=== PATIENT | female | born 1965 | race Caucasian/White ===

== ENCOUNTER 2019-10-18 17:06 | Observation (INO) | payer OTHER, SELFPAY ==
--- NOTE | ~2019-10-18 | CT_ITS ---
EXAMINATION: CTA brain carotid DATE: 10/18/2019 20:50 INDICATION: Left-sided hand and facial numbness. TECHNIQUE: Computed tomographic angiography (CTA) of the head was performed with 100 mL Omnipaque-350 intravenous contrast. CTA of the neck was performed with intravenous contrast. Automated exposure co ntrol and iterative reconstruction technique were employed. The dose-length product was 1064.42 mGy-c m. Maximum intensity projection and volume rendered 3D-reconstructions were created by the дмитрий dasilva on a separate workstation. COMPARISON: Head CT 10/18/2019 FINDINGS: HEAD CTA: There are scattered areas of low attenuation in the cerebral white matter. There is no intr acranial hemorrhage, acute infarction, or abnormal intracranial mass lesion. The ventricles are toi l in size. The paranasal sinuses are clear. The orbits are normal. The mastoid air cells are normal. The vertebral arteries are codominant. There is no significant stenosis of basilar artery or the post erior cerebral arteries. There is no significant stenosis of the intracranial internal carotid arteri es or anterior or middle cerebral arteries. Anterior communicating artery and the posterior communica ting arteries are normal. There is no aneurysm. NECK CTA: The visualized portions of the lung apices demonstrate severe emphysema. There is mild scar ring at the lung apices. There are no pathologically enlarged lymph nodes. There is no significant st enosis of the vertebral arteries. There is endophytic plaque in proximal right internal carotid arter y. There is 28% stenosis of the proximal right internal carotid artery relative to normal distal sherman ry lumen diameter (NASCET criteria). There is 0% stenosis of the proximal left internal carotid arter y relative to normal distal artery lumen diameter. There is moderate cervical spondylosis. IMPRESSION: 1. Mild nonspecific cerebral white matter disease, which likely represents chronic small vessel ische leela disease. 2. No aneurysm or significant intracranial arterial stenosis. 3. 28% stenosis of the proximal right internal carotid artery relative to normal distal artery lumen diameter (NASCET criteria). 4. 0% stenosis of the proximal left internal carotid artery relative to normal distal artery lumen di ameter. 5. Severe emphysema. Reviewed, dictated and finalized at location A. IMPRESSION: 1. Mild nonspecific cerebral white matter disease, which likely represents youth officer doris small vessel ischemic disease. 2. No aneurysm or significant intracranial arterial stenosis. 3. 28% stenosis of the proximal right internal carotid artery relative to toi l distal artery lumen diameter (NASCET criteria). 4. 0% stenosis of the proximal left internal carotid artery relative to normal distal artery lumen diameter. 5. Severe emphysema.
--- NOTE | ~2019-10-18 | XR_ITS ---
XR chest 1V portable DATE: 10/18/2019 17:54 INDICATION: Left face numbness, left arm paresis TECHNIQUE: Portable AP chest on 10/18/2019 at 1755 hours COMPARISON: 11/10/2018 LDCT Lung cancer screening FINDINGS: There is bilateral hyperinflation consistent with COPD. No pulmonary infiltrate or consoli dation, pulmonary vascular congestion or pleural effusion or pneumothorax. No hilar or mediastinal e nlargement. Normal heart size. IMPRESSION: Bilateral hyperinflation, consistent with COPD Reviewed, dictated and finalized at location A.
--- NOTE | ~2019-10-18 | CT_ITS ---
EXAMINATION: CT brain wo con DATE: 10/18/2019 18:00 INDICATION: Left face and hand numbness TECHNIQUE: Computed tomography (CT) of the head was performed without intravenous contrast. The mA wa s adjusted according to patient size. Iterative reconstruction technique was employed. Exam dose: 60 5.33 mGy-cm total exam DLP. COMPARISON: None FINDINGS: No intracranial mass lesion or hemorrhage or cerebrovascular accident is detected. Bilateral carotid siphon calcifications. There is nonspecific mild diminished attenuation of the cer ebral white matter, likely due to chronic small vessel ischemic changes. Normal ventricular size. No subdural or epidural hematoma. No fracture or bone destruction of the cranial vault. The mastoid air cells and included paranasal si nuses are normally developed and aerated. IMPRESSION: Cerebral atherosclerosis and chronic small vessel ischemic changes of the cerebral white matter No acute intracranial finding is noted. CT is not sensitive for detection of hyperacute ischemic nonh emorrhagic infarct. Reviewed, dictated and finalized at Location A. Reviewed, dictated and finalized at location A. IMPRESSION: Cerebral atherosclerosis and chronic small vessel ischemic changes of the cerebral white matter No acute intracranial finding is noted. CT is not sensitive for detection of hy peracute ischemic nonhemorrhagic infarct.
[2019-10-18 17:18] VITALS: BP 108/74; PULSE 80; RESP 17; TEMP 36.8; O2SAT 100
--- NOTE | 2019-10-18 17:21 | ECG_ITS ---
Measurements Intervals [place] Rate: 75 P: -5 LA: 120 QRS: 81 QRSD: 73 T: 79 QT: 377 QTc: 423 Interpretive Statements SINUS RHYTHM BASELINE ARTIFACT- V4-V5 NORMAL ECG Electronically Signed On 10-18-2019 19:36:46 CDT by Stephane Ng D.O.
--- NOTE | 2019-10-18 17:30 | ED.NEUROSD ---
HPI - Neuro Symptoms/Deficit General Chief Complaint: Neuro Symptoms/Deficit Stated Complaint: numbness in left hand and face x 1 hour Time Seen by Provider: 10/18/19 17:21 History of Present Illness HPI Narrative: Numbness to the left side of the face and left hand since earlier today. noted that face seemed to be asymmetrical at that time, this has resolved. She also feels like she would not be able to hold anything in her left hand. No definitive weakness or incoordination. She also feels a little fuzzy. She had a headache earlier in the day. She believes that this was due to drinking alcohol last night. Related Data Home Medications Medication Instructions Recorded Confirmed levothyroxine 75 mcg capsule 75 mcg PO DAILY 05/02/19 omeprazole 40 mg capsule,delayed 40 mg PO DAILY 05/02/19 release roflumilast 500 mcg tablet 500 mcg PO DAILY 05/02/19 fluticasone propionate 50 1 spray NASAL DAILY 06/22/19 mcg/actuation nasal spray,suspension lactobacillus combination no.8 3,000 mmu cells PO DAILY 10/18/19 [Adult Probiotic] lorazepam [Ativan] 1 mg PO DAILY PRN 10/18/19 prednisone 5 mg PO DAILY 10/18/19 tizanidine mg 10/18/19 zoledronic pcvl-ejwzslmw-wnwyr 5 mg IV ONCE 10/18/19 [Reclast] Allergies Allergy/AdvReac Type Severity Reaction Status Date / Time No Known Allergies Allergy Unknown Verified 10/18/19 17:10 Review of Systems Review of Systems: All systems reviewed & are unremarkable except as noted in HPI and below Constitutional: Constitutional: Denies fever(s) and Denies weakness Cardiovascular: Cardiovascular: Denies chest pain Respiratory: Respiratory: Denies dyspnea Gastrointestinal: Gastrointestinal: Denies abdominal pain and Denies nausea Genitourinary: Genitourinary: Denies hematuria and Denies dysuria Musculoskeletal: Musculoskeletal: Denies back pain Neurologic: Reports dizziness, Reports numbness and Denies weakness [facility] Past Medical History Medical History COPD (chronic obstructive pulmonary disease) GERD (gastroesophageal reflux disease) Hypothyroidism Osteopenia Thyroid disease Vocal cord cancer Surgical History Surgical History Cholecystectomy planned tubal ligation planned S/P radiation therapy Family History Family History Father Family history of malignant neoplasm Mother Family history of emphysema Social History Social History Smoking status: Former smoker Gender identity (if verbalized by the patient): Female Exam Const: General: healthy appearing, no acute distress and alert Nutritional Appearance: well nourished Orientation/consciousness: patient oriented x3 HENMT: Head: normal to inspection Eyes: Pupils: Equal, round and reactive pupils present EOM: EOMs intact bilaterally Chest: Chest palpation & inspection: no tenderness Resp: Effort & Inspection: normal respiratory effort Auscultation: clear to auscultation bilaterally, no rales, no rhonchi and no wheezes Cardio: Jugular venous distension: no JVD Rate: regular rate Rhythm: regular rhythm Heart sounds: no murmurs GI: Inspection: non-distended GI Palp: Yes Soft to palpation and No Tenderness to palpation present (GI) Skin: General skin exam: normal color Neuro: General: patient oriented x3, moves all extremities, no focal motor deficits and CN's II-XI intact bilaterally Cranial nerves: Yes Nystagmus not present Speech: normal speech Motor exam (neuro): 5/5 motor strength present throughout Extrem: General: normal to inspection and no edema Psych: Appearance: well kempt Affect: normal affect Course Vital Signs Vital signs: Vital Signs Temperature 36.8 C 10/18/19 17:18 Pulse Rate 80 10/18/19 17:18 Resp
[2019-10-18 17:31] LABS: Glucose Point of Care 99 (65-105)
[2019-10-18 18:00] LABS: Basophils Absolute Auto 0.1 K/mm3 (0.0-0.1); Basophils Percent Auto 0.6 % (0.2-1.2); Eosinophils Percent Auto 0.1 % (0-4.4); Hematocrit 39.6 % (37.0-47.0); Hemoglobin 13.3 g/dL (12.0-15.0); Immature Granulocyte Absolute 0.06 K/mm3 (0.00-0.031); Immature Granulocyte Percent A 0.7 % (0-0.5); Lymphocytes Absolute Auto 1.22 K/mm3 (0.9-3.2); Lymphocytes Percent Auto 14.4 % (18.3-44.2); Mean Corpuscular HGB Conc 33.6 g/dl (32-36); Mean Corpuscular Hemoglobin 31.9 pg (26-34); Mean Platelet Volume 10.2 fl (7.4-10.4); Monocytes Absolute Auto 0.6 K/mm3 (0.1-0.6); Monocytes Percent Auto 6.9 % (2.6-8.5); Neutrophils Absolute Auto 6.6 K/mm3 (1.3-6.7); Neutrophils Percent Auto 77.3 % (45.5-73.1); Platelet Count Result 372 k/mm3 (150-375); Red Blood Count 4.17 M/mm3 (4.2-5.4); Red Cell Distribution Width 12.8 % (11.5-14.5); White Blood Count 8.5 K/mm3 (4.5-10.0)
[2019-10-18] MEDS: SODIUM CHLORIDE 0.9% IV 1,000 ML 999 ML IV CONT (18:09)
[2019-10-18 18:11] LABS: Prothrombin Time 12.8 Seconds (11.1-14.7)
[2019-10-18 18:12] LABS: Partial Thromboplastin Time 22.6 SECONDS (22.3-36.8)
[2019-10-18 18:20] LABS: Anion Gap 9 mmol/L (8-16); Blood Urea Nitrogen 15 mg/dL (7-17); Calcium 10.1 mg/dL (8.4-10.2); Carbon Dioxide 28 mmol/L (22-30); Chloride 102 mmol/L (98-107); Estimated CRCL calculation 74 ml/min; Estimated Glomerular Filt Rate > 60; Glucose 99 mg/dL (65-105); Sodium 139 mmol/L (137-145)
[2019-10-18 18:32] LABS: Troponin I < 0.012 ng/mL (0.000-0.034)
[2019-10-18 19:06] VITALS: BP 109/80; PULSE 75; RESP 16; O2SAT 97
--- NOTE | 2019-10-18 19:22 | PC.NURSE ---
report taken from jt flores at this time.
[2019-10-18] MEDS: ASPIRIN 81 MG CHEWABLE TABLET 324 MG PO (19:45)
[2019-10-18 20:01] VITALS: BP 118/78; PULSE 71; RESP 18; O2SAT 98
[2019-10-18 20:49] VITALS: BP 125/70; PULSE 70; RESP 19; TEMP 36.7; O2SAT 98
--- NOTE | 2019-10-18 20:50 | PM.IMHP ---
H&P: HPI History of Present Illness Date/Time: 10/18/19 20:50 Chief complaint: Left face and hand numbness, suspect TIA Narrative: This is a pleasant 53 year old female with known history of previous vocal cord cancer s/p radiation therapy, COPD, and hypothyroidism who presented to the hospital with a complaint of left hand and left facial numbness as well as left facial droop that started around 5 pm this evening. She has no previous history of stroke. She denies any significant motor weakness although her had to help her into the car. Her has noticed a marked improvement in her left facial droop since being in the hospital. She continues to have some mile left facial droop and left face/hand numbness/tingling. She denies any blurry vision, double vision, slurred speech, difficulty swallowing, head trauma, seizure like activity, or passing out recently. While being in the ER tonight her only other symptoms is a frontal headache. She denies any recent fevers, cough, chills, chest pain, shortness of breath, wheezing, abdominal pain, nasuea, vomiting, diarrhea, dysuria, hematuria, rectal bleeding, rashes or lower extremity edema. Initial CT brain was unremarkable for acute pathology. We have been asked to admiit the patient to the hospital for further care. She quit smoking 6 years ago. Review of Systems Review of Systems: All systems reviewed & are unremarkable except as noted in HPI and below PMFSH Past Medical History Medical History (Updated 10/18/19 @ 21:00 by Omar Ye MD) COPD (chronic obstructive pulmonary disease) GERD (gastroesophageal reflux disease) Hypothyroidism Osteopenia Thyroid disease Vocal cord cancer Surgical History Surgical History (Updated 10/18/19 @ 20:54 by Omar Ye MD) Cholecystectomy planned tubal ligation planned S/P radiation therapy Family History Family History (Updated 03/01/18 @ 13:02 by DOCTOR UNKNOWN) Father Family history of malignant neoplasm Mother Family history of emphysema Social History Social History (Updated 05/02/19 @ 14:59 by Maite Gonzales [facility]) Smoking status: Former smoker Gender identity (if verbalized by the patient): Female Meds Home Medications and Allergies Home Medications Medication Instructions Recorded Confirmed Type levothyroxine 75 mcg capsule 75 mcg PO DAILY 05/02/19 History omeprazole 40 mg capsule,delayed 40 mg PO DAILY 05/02/19 History release roflumilast 500 mcg tablet 500 mcg PO DAILY 05/02/19 History fluticasone fur. 100 mcg-umeclid 1 inhalation INHALATION Q24H 30 06/22/19 06/22/19 Rx 62.5 mcg-vilant 25 mcg Days #60 each inhalat.powder fluticasone propionate 50 1 spray NASAL DAILY 06/22/19 History mcg/actuation nasal spray,suspension albuterol sulfate 90 mcg/actuation 1 puff INHALATION Q4H PRN 30 Days 08/25/19 Rx aerosol inhaler #8.5 gm levalbuterol HCl 0.63 mg/3 mL 0.63 mg INHALATION TID PRN #90 ml 08/25/19 Rx solution for nebulization lactobacillus combination no.8 3,000 mmu cells PO DAILY 10/18/19 History [Adult Probiotic] lorazepam [Ativan] 1 mg PO DAILY PRN 10/18/19 History prednisone 5 mg PO DAILY 10/18/19 History tizanidine mg 10/18/19 History zoledronic zjwt-mvhwyoby-gxeuy 5 mg IV ONCE 10/18/19 History [Reclast] Allergies Allergy/AdvReac Type Severity Reaction Status Date / Time No Known Allergies Allergy Unknown Verified 10/18/19 17:10 Vital Signs Vital Signs - 24 hr 10/18/19 17:18 10/18/19 19:06 10/18/19 20:01 Temperature 36.8 C Pulse Rate 80 75 71 Respiratory Rate 17 16 18 Blood Pressure 108/74 109/80 118/78 Pulse Oximetry 100 97 98 10/18/19 20:49 Temperature 36.7 C Pulse Rate 70 Respiratory Rate 19 Blood Pressure 125/70 Pulse Oximetry 98 Exam Const: General: cooperative, healthy appearing, no acute distress, alert and awake Nutritional Appearance: well nourished Orientation/con
--- NOTE | 2019-10-18 21:10 | PC.NURSE ---
This patient, Nisa Yan, was admitted to 2 Medical Room 250-. Patient/family oriented to hospital policies and general routines including ID bracelet, bed and alarms, visiting hours, pain management, procedures, bathroom and other care routines, personal items, smoking policy, room service/diet, and visiting hours. Valuables list has been completed. Information on how to activate the Rapid Response Team has been discussed. Patient/Family are encouraged to report perceived risks to care and to ask questions if they do not understand what they are told or what they should do.
[2019-10-18 22:00] VITALS: BP 124/80; PULSE 67; PULSE 70; RESP 20; TEMP 36.6; O2SAT 99
[2019-10-18] MEDS: LACTATED RINGERS 1,000 ML 75 ML IV CONT (22:00)
[2019-10-18] MEDS: ACETAMINOPHEN 325 MG TABLET 650 MG PO (22:00)
[2019-10-18 23:02] VITALS: BMI 20.1
[2019-10-19] VITALS: PULSE 81
--- NOTE | 2019-10-19 03:14 | PM.TDS ---
Transfer Discharge Sum: Prov Provider Date of admission: 10/18/19 19:37 Primary care physician: Mack Acuna MD Admitting clinician: Omar Ye MD Consults: 10/18/19 Consult to Physician Routine Comment: Consulting Provider: Francisco Muñoz Reason for consultation: Possible stroke Has provider been notified: Yes DS: Admitting Diagnosis Admitting Diagnosis Admitting Diagnosis: Stroke like symptoms Facial paresthesia Paresthesia of left arm Hypothyroidism COPD GERD DS: Discharge Diagnosis Discharge Diagnosis (1) Stenosis of right internal carotid artery: Code(s): I65.21 - Occlusion and stenosis of right carotid artery Status: Acute (2) Facial paresthesia: Code(s): R20.2 - Paresthesia of skin Status: Acute (3) Paresthesia of left arm: Code(s): R20.2 - Paresthesia of skin Status: Acute (4) Stroke-like symptoms: Code(s): R29.90 - Unspecified symptoms and signs involving the nervous system Status: Acute (5) Hypothyroidism: Qualifiers: Hypothyroidism type: unspecified Qualified Code(s): E03.9 - Hypothyroidism, unspecified Code(s): E03.9 - Hypothyroidism, unspecified Status: Chronic (6) GERD (gastroesophageal reflux disease): Qualifiers: Esophagitis presence: esophagitis presence not specified Qualified Code(s): K21.9 - Gastro-esophageal reflux disease without esophagitis Code(s): K21.9 - Gastro-esophageal reflux disease without esophagitis Status: Chronic (7) COPD (chronic obstructive pulmonary disease): Qualifiers: COPD type: unspecified COPD Qualified Code(s): J44.9 - Chronic obstructive pulmonary disease, unspecified Code(s): J44.9 - Chronic obstructive pulmonary disease, unspecified Status: Chronic Transfer Discharge Sum: Med Medications Active and Home Medications: Home Medications levothyroxine 75 mcg capsule 75 mcg PO DAILY 05/02/19 [History Confirmed 10/18/19] omeprazole 40 mg capsule,delayed release 40 mg PO HS 05/02/19 [History Confirmed 10/18/19] roflumilast 500 mcg tablet 500 mcg PO DAILY 05/02/19 [History Confirmed 10/18/19] fluticasone fur. 100 mcg-umeclid 62.5 mcg-vilant 25 mcg inhalat.powder 1 inhalation INHALATION Q24H 30 Days #60 each 06/22/19 [Rx Confirmed 10/18/19] fluticasone propionate 50 mcg/actuation nasal spray,suspension 1 spray NASAL DAILY 06/22/19 [History Confirmed 10/18/19] albuterol sulfate 90 mcg/actuation aerosol inhaler 1 puff INHALATION Q4H PRN 30 Days #8.5 gm 08/25/19 [Rx Confirmed 10/18/19] levalbuterol HCl 0.63 mg/3 mL solution for nebulization 0.63 mg INHALATION TID PRN #90 ml 08/25/19 [Rx Confirmed 10/18/19] lactobacillus combination no.8 [Adult Probiotic] 3,000 mmu cells PO DAILY 10/18/19 [History Confirmed 10/18/19] lorazepam [Ativan] 1 mg PO DAILY PRN 10/18/19 [History Confirmed 10/18/19] prednisone 5 mg PO DAILY 10/18/19 [History Confirmed 10/18/19] tizanidine 4 mg PO PRN PRN 10/18/19 [History Confirmed 10/18/19] zoledronic jase-ytuohzca-edjph [Reclast] 5 mg IV ONCE 10/18/19 [History Confirmed 10/18/19] Active Medications Acetaminophen (Tylenol Tablet) 650 mg PO Q4H PRN PRN Reason: Mild Pain (1-3) or Fever Last Admin: 10/18/19 22:00 Dose: 650 mg Documented by: Albuterol (Proventil Hfa) 1 puff INHALATION Q4H PRN PRN Reason: shortness of breath or wheezing Fluticasone Propionate (Flonase 0.05% Nasal [place]) 1 spray NASAL DAILY CRISTIAN Lactated Ringer's (Lr - Lactated Ringers Iv) 1,000 mls @ 75 mls/hr IV CONT .[id number] CRISTIAN Last Admin: 10/18/19 22:00 Dose: 75 mls/hr Documented by: Lactobacillus Acidophilus (Lactinex Chewable Tablet) 1 tablet PO DAILY CRISTIAN Lorazepam (Ativan Tablet) 1 mg PO DAILY PRN PRN Reason: Anxiety Non-Formulary Medication (Yyjeuwzvseo-Luonexnbh-Lavydbmf [Trelegy Ellipta]) 1 inhalation INHALATION Q24H [facility] Stop: 11/17/19 23:01 Non-Formulary Medication (Roflumilast) 500 mcg PO DAILY CRISTIAN Stop:
== END 2019-10-19 03:15 | disposition short-term general hospital (02) ==
LOC: ANHED 19:50 → ANH2MED 20:26
PROVIDERS: Admitting Provider Family Medicine; Emergency Provider Emergency Medicine; PCP Family Medicine; Visit Provider Family Medicine
DX: I65.21 Occlusion and stenosis of right carotid artery (principal); R20.0 Anesthesia of skin; R29.810 Facial weakness; R29.90 Unspecified symptoms and signs involving the nervous system; J44.9 Chronic obstructive pulmonary disease, unspecified; K21.9 Gastro-esophageal reflux disease without esophagitis; E03.9 Hypothyroidism, unspecified; M85.80 Other specified disorders of bone density and structure, unspecified site; Z85.21 Personal history of malignant neoplasm of larynx; Z92.3 Personal history of irradiation; Z87.891 Personal history of nicotine dependence
CPT/HCPCS: 36415; 70450; 70496; 70498; 71045; 80048; 82948; 84484; 85025; 85610; 85730; 93005; 99285; A9270; G0378; J7030; J7120; Q9967

== ENCOUNTER → 2019-12-25 14:47 | Outpatient (CLI) | payer OTHER, SELFPAY ==
--- NOTE | ~2019-12-25 | CT_ITS ---
EXAMINATION:CT lung screening DATE: 12/25/2019 15:14 INDICATION: Personal history of tobacco dependence. Smoker quit 6 years ago with 45 pack pack year hi story. TECHNIQUE: Computed tomography (CT) of the chest was performed without intravenous contrast. Automate d exposure control and iterative reconstruction technique were employed. The dose-length product (DLP ) was 45.92 mGy-cm. COMPARISON: Chest CT 11/10/2018 FINDINGS: There is mild scarring at the lung apices. There is severe emphysema. There is mild atelect asis and scarring at the lung bases. There is a 7 mm nodule in right upper lobe abutting the pleura w ithout change. No pleural effusion. The heart size is normal. No pericardial effusion. There are esquivel ges of cholecystectomy. There is mild thoracic spondylosis. IMPRESSION: 1. Lung-RADS category 2: Benign appearance or behavior. Continue annual screening with noncontrast lo w-dose chest CT in 12 months. Reviewed, dictated and finalized at location B. AN IMPRESSION: 1. Lung-RADS category 2: Benign appearance or behavior. Continue annual screeni ng with noncontrast low-dose chest CT in 12 months.
== END ==
PROVIDERS: Visit Provider Internal Medicine Critical Care Medicine
DX: Z12.2 Encounter for screening for malignant neoplasm of respiratory organs (principal); Z87.891 Personal history of nicotine dependence
CPT/HCPCS: G0297

== ENCOUNTER → 2020-02-22 17:40 | Outpatient (CLI) | payer OTHER, SELFPAY ==
--- NOTE | ~2020-02-22 | DEXA_ITS ---
Bone Density Report Name: Nisa Yan Age: 54 Sex: Female Ethnicity: White Date of : 1965 Indication: osteopenia; height loss; history of glucocorticoids; asthma or emphysema; postmenopausal Referring Provider: GRADY, ALFRED Study: Bone densitometry was performed. Exam Date: February 22, 2020 Accession number: [id number] Bone Density: Region BMD T-score Z-score Classification AP Spine (L1-L4) 0.885 -1.5 -0.3 Osteopenia Femoral Neck (Left) 0.586 -2.4 -1.3 Osteopenia Total Hip (Left) 0.657 -2.3 -1.6 Osteopenia Femoral Neck (Right) 0.569 -2.5 -1.4 Osteoporosis Total Hip (Right) 0.629 -2.6 -1.8 Osteoporosis Total Hip Mean 0.643 -2.5 -1.7 Osteopenia World Health Organization criteria for BMD impression classify patients as: Normal (T-score at or above -1.0), Osteopenia (T-score between -1.0 and -2.5), or Osteoporosis (T-score at or below -2.5). 10-year Fracture Risk: FRAX not reported because: Some T-score for Spine Total or Hip Total or Femoral Neck at or below -2.5 Previous Exams: Region Exam Age BMD T-score BMD Change BMD Change Date g/cm2 vs Baseline vs Previous AP Spine(L1-L4) 02/22/2020 54 0.885 -1.5 -0.006 -0.005 05/11/2017 51 0.890 -1.4 -0.001 -0.018 01/31/2015 49 0.909 -1.3 0.017 0.033* 01/25/2013 47 0.876 -1.6 -0.016 -0.041* 12/08/2010 45 0.917 -1.2 0.025* 0.025* 10/24/2008 43 0.892 -1.4 Total Hip(Left) 02/22/2020 54 0.657 -2.3 0.004 -0.015 05/11/2017 51 0.672 -2.2 0.018 0.004 01/31/2015 49 0.668 -2.2 0.015 0.008 01/25/2013 47 0.660 -2.3 0.006 -0.009 12/08/2010 45 0.669 -2.2 0.015 0.015 10/24/2008 43 0.654 -2.4 Total Hip(Right) 02/22/2020 54 0.629 -2.6 -0.070* -0.029* 05/11/2017 51 0.657 -2.3 -0.041* -0.037* 01/31/2015 49 0.694 -2.0 -0.004 -0.005 01/25/2013 47 0.699 -2.0 0.000 -0.003 12/08/2010 45 0.702 -2.0 0.003 0.003 10/24/2008 43 0.699 -2.0 *Denotes significance at 95% confidence level, LSC for AP Spine = 0.022 g/cm2, LSC for Total Hip = 0.027 g/cm2 Clinical Information Provided by Patient: Has taken Glucocorticoids Has used the following medications: Vitamin D, Calcium Has the following medical conditions: Asthma or Emphysema
--- NOTE | ~2020-02-22 | MM_ITS ---
EXAMINATION: MM screening [place]nell BI w bolivar HISTORY: Screening mammogram, family history of breast cancer in her sister. TECHNIQUE: Craniocaudal and mediolateral oblique 3-D tomosynthesis images were obtained and synthetic 2-D images were generated. CAD analysis was submitted and interpreted. COMPARISON: 10/31/2018, 05/11/2017, 02/04/2016 BREAST PARENCHYMAL COMPOSITION: The breasts are heterogeneously dense, which may obscure small masses . FINDINGS: There is no evidence of suspicious mass, calcification, or architectural distortion to sugg est malignancy in either breast. There has been no suspicious interval change. IMPRESSION: 1. No mammographic evidence of malignancy. 2. Recommend routine screening mammography in one year. BI-RADS Category 1: Negative Reviewed, dictated and finalized at location A. FROZEN DESSERT
== END ==
PROVIDERS: PCP Family Medicine; Visit Provider Nurse Practitioner
DX: Z12.31 Encounter for screening mammogram for malignant neoplasm of breast (principal); M85.88 Other specified disorders of bone density and structure, other site; M85.852 Other specified disorders of bone density and structure, left thigh; M85.851 Other specified disorders of bone density and structure, right thigh; M81.0 Age-related osteoporosis without current pathological fracture
CPT/HCPCS: 77063; 77067; 77080

== ENCOUNTER 2020-04-18 16:03 | Outpatient (CLI) | payer OTHER, SELFPAY ==
--- NOTE | ~2020-04-18 | US_ITS ---
EXAMINATION: US carotid duplex BI EXAM DATE: 04/18/2020 16:42 INDICATION: Carotid stenosis. TECHNIQUE: Grayscale, color and pulsed Doppler images of the cervical carotid arteries were obtained . The degree of vessel stenosis is placed in one of the following categories: normal, <50% stenosis, 50-69% stenosis, >=70% stenosis but less than near-occlusion, near-occlusion, or occlusion. Note that percent stenosis relative to normal distal artery lumen diameter is indirectly measured from velocit y measurements as described by Reed, et al. Radiology 2003; 229:340-346. Correlation is made to CTA brain carotid exam 10/18/2019. FINDINGS: RIGHT SIDE: Right common carotid artery peak systolic velocity (PSV in cm/s): 96 Right bulb/internal carotid artery peak systolic velocity (PSV in cm/s): 108 Right internal carotid artery end diastolic velocity (EDV in cm/s): 23 Right ICA/CCA peak systolic ratio: 1.1 Right external carotid artery peak systolic velocity (PSV in cm/s): 43 Right vertebral artery antegrade flow: yes There is mild carotid bulb plaque. Velocity and Doppler waveforms in the common and internal carotid arteries is normal. LEFT SIDE: Left common carotid artery peak systolic velocity (PSV in cm/s): 124 Left bulb/internal carotid artery peak systolic velocity (PSV in cm/s): 144 Left internal carotid artery end diastolic velocity (EDV in cm/s): 58 Left ICA/CCA peak systolic ratio: 1.2 Left external carotid artery peak systolic velocity (PSV in cm/s): 105 Left vertebral artery antegrade flow: yes There is no focal plaque identified. IMPRESSION: 1. Less than 50 percent stenosis in the right internal carotid artery. 2. Normal left internal carotid artery. Reviewed, dictated and finalized at location A. IOVASCULAR TECHNOLOGIST
== END 2020-04-18 16:04 | disposition home or self-care (01) ==
PROVIDERS: PCP Family Medicine; Visit Provider Physician Assistant
DX: I63.239 Cerebral infarction due to unspecified occlusion or stenosis of unspecified carotid artery (principal); Z86.73 Personal history of transient ischemic attack (TIA), and cerebral infarction without residual deficits
CPT/HCPCS: 93880

== ENCOUNTER 2020-04-30 16:54 | Emergency (ER) | payer OTHER, SELFPAY ==
--- NOTE | ~2020-04-30 | XR_ITS ---
XR chest 2V DATE: 04/30/2020 17:42 INDICATION: Cough, spitting up blood. TECHNIQUE: PA and lateral views COMPARISON: 12/25/2019 CT lung screening 10/18/2019 portable AP chest FINDINGS: Bilateral hyperinflation and relative flattening the diaphragm, consistent with COPD. No pu lmonary infiltrate or consolidation, pleural effusion or pulmonary vascular congestion or pneumothora x is evident. Normal heart size. No hilar or mediastinal enlargement. Diffuse osteopenia. Status post cholecystectomy. IMPRESSION: COPD Reviewed, dictated and finalized at location A. IMPRESSION: COPD
[2020-04-30 17:27] VITALS: BP 129/82; PULSE 119; RESP 18; TEMP 37.4; O2SAT 94
--- NOTE | 2020-04-30 17:41 | ED.GENADULT ---
HPI - General Adult General Chief complaint: Upper Respiratory Infection Stated complaint: Coughing up Blood,hard time breathing Time Seen by Provider: 04/30/20 17:41 Source: patient Mode of arrival: ambulatory Limitations: no limitations History of Present Illness HPI narrative: 54-year-old female patient presents to the [facility] with complaints of shortness of breath and cough x2 days. Patient does have history of COPD and is a former smoker. Patient states that she started taking a Z-Dorian that she had at home about 2 days ago and today was her third dose. Patient states that she has also been using her albuterol treatments and her rescue inhaler at home and states she just does not feel like she is getting any relief. Patient states she has also been coughing up some streaks of blood at times. Denies any fevers that she is aware of. States that she has had a little bit of a runny nose or stuffy nose. Patient denies any Covid diagnosis within the last 3 months but states she did get her first Covid shot on April 18. Related Data Home Medications Medication Instructions Recorded Confirmed albuterol sulfate [Ventolin HFA] 2 puff INHALATION Q4-6H 04/30/20 04/30/20 aspirin [Adult Aspirin EC Low 81 mg PO DAILY 04/30/20 04/30/20 Strength] atorvastatin [Lipitor] 20 mg PO HS 04/30/20 04/30/20 biotin 10,000 mcg PO BID 04/30/20 04/30/20 calcium carbonate-vitamin D2 1 tablet PO BID 04/30/20 04/30/20 [Calcium 500 with Vitamin D2] coenzyme Q10 200 mg PO BID 04/30/20 04/30/20 fluticasone propionate [Flonase] 1 spray INTRANASAL DAILY 04/30/20 04/30/20 [id number]-[id number]-[id number] 1 inh INHALATION DAILY 04/30/20 04/30/20 [Trelegy Ellipta] lactobacillus combination no.8 3,000 mmu cells PO DAILY 04/30/20 04/30/20 [Adult Probiotic] levalbuterol HCl [Xopenex] 0.63 mg INHALATION TID 04/30/20 04/30/20 levothyroxine [Synthroid] 75 mcg PO DAILY 04/30/20 04/30/20 lorazepam [Ativan] 1 mg PO DAILY 04/30/20 04/30/20 omeprazole [Prilosec] 40 mg PO DAILY 04/30/20 04/30/20 prednisolone 5 mg PO DAILY 04/30/20 04/30/20 risedronate 1 mg PO WEEKLY 04/30/20 04/30/20 roflumilast [Daliresp] 500 mcg PO QAM 04/30/20 04/30/20 tizanidine [Zanaflex] 4 mg PO Q8H 04/30/20 04/30/20 Allergies Allergy/AdvReac Type Severity Reaction Status Date / Time No Known Allergies Allergy Unknown Verified 04/30/20 17:34 Review of Systems Review of Systems: Narrative: CONSTITUTIONAL: Denies fever, chills, or sweats. EYES: Denies visual changes, redness, or discharge. ENT: Denies rhinorrhea, congestion, sore throat, or otalgia. CARDIOVASCULAR: Denies chest pain, palpitations, or edema. RESPIRATORY: Positive cough with dyspnea. GASTROINTESTINAL: Denies abdominal pain, nausea, vomiting, or diarrhea. GENITOURINARY: Denies dysuria or hematuria. SKIN: Denies rash or itching. MUSCULOSKELETAL: Denies back pain, joint pain, or myalgia. NEUROLOGIC: Denies headache, numbness, or weakness. PSYCHIATRIC: Denies anxiety or depression. ON LICENSE OF [facility] Past Medical History Medical History (Updated 04/30/20 @ 18:30 by GLADIS Vogt) COPD (chronic obstructive pulmonary disease) CVA (cerebral vascular accident) Facial paresthesia GERD (gastroesophageal reflux disease) Hypothyroidism Osteopenia Paresthesia of left arm Stenosis of right internal carotid artery Thyroid disease Vocal cord cancer Surgical History Surgical History Cholecystectomy planned History of CEA (carotid endarterectomy) left side tubal ligation planned S/P radiation therapy Family History Family History Father Family history of malignant neoplasm Leukemia Mother Family history of emphysema Cerebrovascular accident Chronic obstructive pulmonary disease Sibling Chronic obstructive pulmonary disease Social History Social History (Reviewed 04/30/20 @ 17:41 by Candi
[2020-04-30] MEDS: IPRATROPIUM BR 0.02% INH SOLN 0.5 MG/2.5 ML VIAL INHALATION (17:55)
[2020-04-30] MEDS: ALBUTEROL SULFATE NEB 2.5 MG/3 ML INH INHALATION (17:55)
[2020-05-01 14:15] LABS: SARS-CoV-2 RNA PCR Negative
== END 2020-04-30 18:24 | disposition short-term general hospital (02) ==
PROVIDERS: Emergency Provider Nurse Practitioner Family; PCP Family Medicine
DX: R06.02 Shortness of breath (principal); R04.2 Hemoptysis; Z20.822 Contact with and (suspected) exposure to COVID-19; J44.9 Chronic obstructive pulmonary disease, unspecified; Z86.73 Personal history of transient ischemic attack (TIA), and cerebral infarction without residual deficits; K21.9 Gastro-esophageal reflux disease without esophagitis; E03.9 Hypothyroidism, unspecified; M85.80 Other specified disorders of bone density and structure, unspecified site; Z85.21 Personal history of malignant neoplasm of larynx; Z92.3 Personal history of irradiation; Z87.891 Personal history of nicotine dependence
CPT/HCPCS: 71046; 87426; 94640; 99213; C9803; G0463; U0003; U0005

== ENCOUNTER 2020-04-30 18:59 | Emergency (ER) | payer OTHER, SELFPAY ==
--- NOTE | ~2020-04-30 | CT_ITS ---
EXAMINATION: CTA chest PE protocol DATE: 04/30/2020 21:27 INDICATION: Cough. Hemoptysis. Shortness of breath. TECHNIQUE: Computed tomography angiography (CTA) of the chest was performed with 100 mL Omnipaque-350 intravenous contrast timed to evaluate the pulmonary arteries. Coronal maximum intensity projection 3D-reconstructions were created by the technologist. Automated exposure control and iterative reconst ruction technique were employed. Exam dose: 144.91 mGy-cm total exam DLP. COMPARISON: 04/30/2020 2 view chest 12/25/2019 CT lung screening examinations FINDINGS: There is diagnostic contrast enhancement of the pulmonary arteries and no evidence of pulmo nary embolism. No thoracic aortic aneurysm or dissection. No hilar or mediastinal mass lesion or lymphadenopathy. Normal heart size. No pericardial or pleural effusion. Emphysematous changes of the lungs. There is mild infiltrate and/atelectasis at the right lung base, primarily on the dependent posterior right lower lobe. Normal morphology of the adrenal glands. No suspicious osteolytic or osteoblastic lesions. IMPRESSION: No evidence of pulmonary embolism COPD Reviewed, dictated and finalized at Location A. Reviewed, dictated and finalized at location A.
[2020-04-30 19:23] VITALS: BP 135/90; PULSE 121; RESP 20; TEMP 37; O2SAT 95
--- NOTE | 2020-04-30 19:26 | ECG_ITS ---
Measurements Intervals [place] Rate: 100 P: 79 GA: 139 QRS: 76 QRSD: 78 T: 68 QT: 327 QTc: 423 Interpretive Statements SINUS TACHYCARDIA POSSIBLE LEFT ATRIAL ENLARGEMENT BORDERLINE ST ABNORMALITY- LATERAL LEADS BASELINE ARTIFACT- I, II, III, AVR, AVL, AVF, V4-V5 BORDERLINE ECG Electronically Signed On 05-01-2020 7:12:50 CDT by Stephane Ng D.O.
[2020-04-30 19:41] LABS: Basophils Absolute Auto 0.1 K/mm3 (0.0-0.1); Basophils Percent Auto 0.4 % (0.2-1.2); Eosinophils Absolute Auto 0.1 K/mm3 (0-0.3); Eosinophils Percent Auto 0.7 % (0-4.4); Hematocrit 37.6 % (37.0-47.0); Hemoglobin 12.3 g/dL (12.0-15.0); Immature Granulocyte Absolute 0.08 K/mm3 (0.00-0.031); Immature Granulocyte Percent A 0.7 % (0-0.5); Lymphocytes Absolute Auto 1.03 K/mm3 (0.9-3.2); Lymphocytes Percent Auto 8.8 % (18.3-44.2); Mean Corpuscular HGB Conc 32.7 g/dl (32-36); Mean Corpuscular Hemoglobin 30.8 pg (26-34); Mean Corpuscular Volume 94.2 fl (80-100); Mean Platelet Volume 9.6 fl (7.4-10.4); Monocytes Absolute Auto 0.9 K/mm3 (0.1-0.6); Neutrophils Absolute Auto 9.5 K/mm3 (1.3-6.7); Neutrophils Percent Auto 81.4 % (45.5-73.1); Platelet Count Result 367 k/mm3 (150-375); Red Blood Count 3.99 M/mm3 (4.2-5.4); Red Cell Distribution Width 13.2 % (11.5-14.5); White Blood Count 11.7 K/mm3 (4.5-10.0)
[2020-04-30 19:53] LABS: Anion Gap 10 mmol/L (8-16); Blood Urea Nitrogen 15 mg/dL (7-17); Calcium 9.9 mg/dL (8.4-10.2); Carbon Dioxide 27 mmol/L (22-30); Chloride 105 mmol/L (98-107); Estimated CRCL calculation 54 ml/min; Estimated Glomerular Filt Rate > 60; Glucose 130 mg/dL (65-105); Potassium 3.7 mmol/L (3.4-5.0); Sodium 142 mmol/L (137-145)
[2020-04-30 20:50] VITALS: BP 130/98; PULSE 101; RESP 21; O2SAT 97
[2020-04-30 21:10] VITALS: BP 93/78; PULSE 96; RESP 21; O2SAT 97
--- NOTE | 2020-04-30 22:36 | ED.SOB ---
HPI - SOB/Dyspnea General Chief Complaint: Shortness of Breath/Dyspnea Stated Complaint: shortness of breath, r/o PE Time Seen by Provider: 04/30/20 20:34 Source: patient and family Mode of arrival: ambulatory Limitations: no limitations History of Present Illness HPI Narrative: 54-year-old with a history of COPD here with complaints of cough shortness of breath. Patient states that she is been having dry cough most of the time had few episodes of coughing of blood. Patient denies any shortness of breath at this time patient states that she called her primary doctor who started on Z-Dorian. However she recommended her to go to the ER for a CT scan for rule out PE. Patient has no previous history of PEs however she states that she had a stroke last year. MD elicited complaint: shortness of breath and cough Pertinent past history: COPD Exacerbating factors: nothing Known history of: COPD Associated symptoms: denies other symptoms Related Data Home oxygen amount: none Home Medications Medication Instructions Recorded Confirmed albuterol sulfate [Ventolin HFA] 2 puff INHALATION Q4-6H 04/30/20 04/30/20 aspirin [Adult Aspirin EC Low 81 mg PO DAILY 04/30/20 04/30/20 Strength] atorvastatin [Lipitor] 20 mg PO HS 04/30/20 04/30/20 biotin 10,000 mcg PO BID 04/30/20 04/30/20 calcium carbonate-vitamin D2 1 tablet PO BID 04/30/20 04/30/20 [Calcium 500 with Vitamin D2] coenzyme Q10 200 mg PO BID 04/30/20 04/30/20 fluticasone propionate [Flonase] 1 spray INTRANASAL DAILY 04/30/20 04/30/20 [id number]-[id number]-hortuayw 1 inh INHALATION DAILY 04/30/20 04/30/20 [Trelegy Ellipta] lactobacillus combination no.8 3,000 mmu cells PO DAILY 04/30/20 04/30/20 [Adult Probiotic] levalbuterol HCl [Xopenex] 0.63 mg INHALATION TID 04/30/20 04/30/20 levothyroxine [Synthroid] 75 mcg PO DAILY 04/30/20 04/30/20 lorazepam [Ativan] 1 mg PO DAILY 04/30/20 04/30/20 omeprazole [Prilosec] 40 mg PO DAILY 04/30/20 04/30/20 prednisolone 5 mg PO DAILY 04/30/20 04/30/20 risedronate 1 mg PO WEEKLY 04/30/20 04/30/20 roflumilast [Daliresp] 500 mcg PO QAM 04/30/20 04/30/20 tizanidine [Zanaflex] 4 mg PO Q8H 04/30/20 04/30/20 Allergies Allergy/AdvReac Type Severity Reaction Status Date / Time No Known Allergies Allergy Unknown Verified 04/30/20 17:34 Review of Systems Review of Systems: All systems reviewed & are unremarkable except as noted in HPI and below Constitutional: Constitutional: Reports no additional constitutional complaints Eyes: Eyes: Reports no additional eye complaints ENT: Reports system reviewed and no additional complaints, except as documented Cardiovascular: Cardiovascular: Reports no additional cardiovascular complaints Respiratory: Respiratory: Reports as per HPI Gastrointestinal: Gastrointestinal: Reports no additional gastrointestinal complaints Musculoskeletal: Musculoskeletal: Reports no additional musculoskeletal complaints [facility] Past Medical History Medical History COPD (chronic obstructive pulmonary disease) CVA (cerebral vascular accident) Facial paresthesia GERD (gastroesophageal reflux disease) Hypothyroidism Osteopenia Paresthesia of left arm Stenosis of right internal carotid artery Thyroid disease Vocal cord cancer Surgical History Surgical History Cholecystectomy planned History of CEA (carotid endarterectomy) left side tubal ligation planned S/P radiation therapy Family History Family History Father Family history of malignant neoplasm Leukemia Mother Family history of emphysema Cerebrovascular accident Chronic obstructive pulmonary disease Sibling Chronic obstructive pulmonary disease Social History Social History Years smoked: 20 Smoking status: Former smoker
[2020-04-30 22:50] VITALS: BP 111/77; PULSE 99; RESP 15; O2SAT 98
== END 2020-04-30 23:00 | disposition home or self-care (01) ==
PROVIDERS: Emergency Provider Family Medicine; PCP Family Medicine
DX: J43.9 Emphysema, unspecified (principal); Z86.73 Personal history of transient ischemic attack (TIA), and cerebral infarction without residual deficits; K21.9 Gastro-esophageal reflux disease without esophagitis; E03.9 Hypothyroidism, unspecified; I65.21 Occlusion and stenosis of right carotid artery; M85.80 Other specified disorders of bone density and structure, unspecified site; Z87.891 Personal history of nicotine dependence; R00.0 Tachycardia, unspecified; R94.31 Abnormal electrocardiogram [ECG] [EKG]
CPT/HCPCS: 36415; 71046; 71275; 80048; 85025; 87426; 93005; 94640; 99284; C9803; Q9967; U0003; U0005

== ENCOUNTER 2020-08-16 12:31 | Outpatient (CLI) | payer OTHER, SELFPAY ==
--- NOTE | 2020-08-16 16:19 | WPDSIXMINUTE ---
Six Minute Walk Procedure Procedure Performed Pulmonary Stress Test (6 min walk) Six Minute Walk This is a 6 minutes walk test. The test was performed and interpreted in accordance with the 2014 ERS/ATS task force guidelines. Findings: The patient's resting room air oxygen saturation measured by pulse oximetry was 95% and her heart rate was 82 bpm. Patient ambulated for 366 meters and oxygen saturation remained 91 to 96%. Heart rate at the end of the study was 92 bpm. The patient did not qualify for supplemental oxygen at rest or with ambulation. There are no prior studies for comparison.
--- NOTE | 2020-08-16 16:21 | WPDPFTINT ---
PFT Procedure Performed PFT Procedure Performed Plethysmography (Lung Vol) Diffusing Cap (DLCO) Flow Vol Loop Spirometry w/o Bronchodil PFT Interpretation This is a pulmonary function test with spirometry, plethysmography and diffusing capacity. The test was performed and results interpreted in accordance with the 2019 and 2005 ATS/ERS Task Force guidelines respectively using the Global Lung Function Initiative-2012 reference equations. Patient demonstrated good effort and cooperation. Reproducibility criteria were met. The quality of the pre bronchodilator spirometry maneuver was Grade A. Findings: Spirometry: There is decreased maximal expiratory airflow at all lung volumes with concave expiratory flow tracing. The contour of the inspiratory flow tracing is normal. The FVC is 2.77 L, 84% predicted. The FEV1 is 0.88 L, 34% predicted. The FEV1: FVC ratio is 32%. Plethysmography: The total lung capacity is 5.80 L, 114% predicted. The functional residual capacity is 3.91 L, 137% predicted. The residual volume is 3.03 L, 158% predicted. Diffusing capacity: The absolute diffusion capacity is 10.1, 46% predicted. The diffusing capacity corrected for alveolar volume is 2.37, 53% predicted. In comparison to previous pulmonary function test on 11/22/2018 the FVC has increased from 2.24 L to 2.77 L. The FEV1 has increased from 0.66 L to 0.88 L. The total lung capacity is unchanged from 5.87 L to 5.80 L. The functional residual capacity has decreased from 4.87 L to 3.91 L. The residual volume has decreased from 3.63 L to 3.03 L. The absolute diffusion capacity has increased from 8.8 to 10.1. The diffusing capacity corrected for alveolar volume is unchanged from 2.67 to 2.37. Impression: There is a very severe obstructive abnormality. The increase in residual volume is consistent with air trapping from an obstructive abnormality. Hyperinflation is present is demonstrated by the increase in functional residual capacity and is consistent with an obstructive abnormality. The absolute diffusing capacity is moderately decreased and remains moderately decreased when corrected for alveolar volume. In comparison to prior pulmonary function test on 11/22/2018 there has been an increase in FVC, FEV1 and absolute DLCO. There has been a greater than anticipated time dependent decrease in functional residual capacity and residual volume with no significant change in the total lung capacity and diffusing capacity corrected for alveolar volume. Clinical correlation is recommended.
== END 2020-08-16 12:32 | disposition home or self-care (01) ==
LOC: ANHPFT 12:33
PROVIDERS: PCP Physician Assistant; Visit Provider Internal Medicine Critical Care Medicine
DX: J44.9 Chronic obstructive pulmonary disease, unspecified (principal)
CPT/HCPCS: 94375; 94618; 94726; 94729

== ENCOUNTER 2020-10-11 09:30 | Outpatient (RCR) | payer OTHER, SELFPAY | END 2020-10-11 11:00 | disposition home or self-care (01) | LOC: ANHCPREHAB 09:30 | PROVIDERS: PCP Physician Assistant; Visit Provider Internal Medicine Critical Care Medicine | DX: J44.9 Chronic obstructive pulmonary disease, unspecified (principal) | CPT/HCPCS: 97150; G0424 ==

== ENCOUNTER → 2020-10-31 08:01 | Outpatient (CLI) | payer OTHER, SELFPAY ==
--- NOTE | ~2020-10-31 | MMUS_ITS ---
EXAMINATION: MM diagnostic pernell LT w bolivar, US breast LT limited HISTORY: Palpable left breast abnormality TECHNIQUE: Additional 3-D tomosynthesis images of the left breast were performed and synthetic 2-D im ages were generated. CAD analysis was submitted and interpreted. High resolution left breast ultrasou nd was performed. COMPARISON: Comparison to multiple prior studies sequentially, with oldest reviewed study dated 01/15. BREAST PARENCHYMAL COMPOSITION: The breasts are heterogenously dense, which may obscure small masses. FINDINGS: MAMMOGRAPHIC FINDINGS: There are no suspicious masses, calcifications or architectural distortion in the left breast to sugg est malignancy. ULTRASOUND: Limited left breast ultrasound: Normal heterogeneous echotexture without focal solid or cystic mass. IMPRESSION: 1. No evidence for malignancy in the left breast. 2. Routine yearly screening mammogram and regular clinical breast examination are recommended. BI-RADS Category 1: Negative Reviewed, dictated and finalized at location A. IMPRESSION: 1. No evidence for malignancy in the left breast. 2. Routine yearly screening mammogram and regular clinical breast examination a re recommended. BI-RADS Category 1: Negative
== END ==
PROVIDERS: PCP Physician Assistant; Visit Provider Nurse Practitioner
DX: N63.24 Unspecified lump in the left breast, lower inner quadrant (principal)
CPT/HCPCS: 76642; 77061; 77065; G0279

== ENCOUNTER 2020-11-25 09:37 | Outpatient (CLI) | payer OTHER, SELFPAY ==
--- NOTE | ~2020-11-25 | US_ITS ---
EXAMINATION: US carotid duplex BI DATE: 11/25/2020 10:15 INDICATION: Right carotid artery stenosis TECHNIQUE: Grayscale, color Doppler, and pulsed Doppler images of the cervical carotid arteries were obtained. The degree of vessel stenosis is placed in one of the following categories: normal, <50%, 5 0-69%, >=70% but less than near-occlusion, near-occlusion, or total occlusion. Note that percent sten osis relative to normal distal artery lumen diameter is indirectly measured from velocity measurement s as described by Reed, et al. Radiology 2003; 229:340-346. Notes: Normal: Peak systolic velocity <125 centimeters/sec and no plaque <50%. Peak systolic velocity <125 ( EDV <40; ICA/CCA PSV ratio <2.0; used these factors only a tandem lesions or low cardiac output or co ntralateral disease) 50-69 %: PSV 125-230 (EDV 40-100; ratio 2-4) >= 70% but less than near occlusion: PSV greater than 230 (EDV > 100; ratio> 4.0) Near Occlusion: PSV that is variable; markedly narrowed lumen Occlusion: Absent flow on color/spectral Doppler and no lumen on hillman scale. COMPARISON: Ultrasound dated 04/18/2020. FINDINGS: RIGHT: The right common carotid artery (CCA) peak systolic velocity (PSV) is 85 cm/s. The right internal car otid artery (ICA) PSV is 71 cm/s. The right ICA end-diastolic velocity (EDV) is 30 cm/s. The right IC A/CCA PSV ratio is 0.8. The external carotid artery (ECA) PSV is 256 cm/s. There is antegrade flow in the right vertebral artery. LEFT: The left CCA PSV is 78 cm/s. The left ICA PSV is 83 cm/s. The left ICA EDV is 23 cm/s. The left ICA/C CA PSV ratio is 1.1. The ECA PSV is 86 cm/s. There is antegrade flow in the left vertebral artery. IMPRESSION: 1. Less than 50% stenosis in the right internal carotid artery by sonographic criteria. 2. Less than 50% stenosis in the left internal carotid artery by sonographic criteria. Reviewed, dictated and finalized at location A. IMPRESSION: 1. Less than 50% stenosis in the right internal carotid artery by sonographic tyrell guzman. 2. Less than 50% stenosis in the left internal carotid artery by sonographic dionne carmona.
== END 2020-11-25 09:38 | disposition home or self-care (01) ==
LOC: ANHIMG 09:41
PROVIDERS: PCP Physician Assistant
DX: I65.23 Occlusion and stenosis of bilateral carotid arteries (principal)
CPT/HCPCS: 93880

== ENCOUNTER → 2020-12-31 10:50 | Outpatient (CLI) | payer OTHER, SELFPAY ==
--- NOTE | ~2020-12-31 | CT_ITS ---
EXAMINATION: CT lung screening EXAM DATE: 12/31/2020 11:04 INDICATION: Z87.891 - Personal history of nicotine dependence . Vocal cord cancer 2019. TECHNIQUE: Spiral low dose CT of the chest without contrast. Axial, coronal and sagittal images were reviewed. The dose-length product (DLP) for this examination was 41.40 mGy-cm. The exposure was ta ilored according to patient size (auto mA exposure control), and iterative reconstruction (ASIR) was used as additional dose reduction technique. Comparison is made to prior examination from 04/30/2020. FINDINGS: There is moderate emphysema. There has been interval development of right upper lobe opaci ty extending from the suprahilar region to the apex, maximal axial dimensions 3.7 x 1.4 cm. Elongated shape suggests that this could be postinfectious, but it is new compared to prior study and size claudio vates L-RADS category to 4B. Tracheobronchial tree is patent. There is no mediastinal, hilar or axillary lymphadenopathy. Ther e are no pleural or pericardial effusions. There is no pneumothorax. Heart normal in size. Ther e is mild coronary arterial calcification, arterial sclerosis. Upper abdomen is unremarkable. There is thoracic spondylosis without osteoblastic or osteolytic lesions identified. IMPRESSION: Lung-RADS category 4B. This could be percutaneously biopsied. Alternatively a PET/CT coul d be obtained and further recommendation based on those results. I left a message for Dr. Natalie Fontanez MD on 12/31/2020 13:18 REMOTE CONTROL MIRROR INSTALLER. I provided patient's name, da te of , 4B results, my direct number for call back to discuss this case. Reviewed, dictated and finalized at location B. TE CONTROL MIRROR INSTALLER IMPRESSION: Lung-RADS category 4B. This could be percutaneously biopsied. Alter natively a PET/CT could be obtained and further recommendation based on those r esults. I left a message for Dr. Natalie Fontanez MD on 12/31/2020 13:18 REMOTE CONTROL MIRROR INSTALLER. I provi ded patient's name, date of , 4B results, my direct number for call back t o discuss this case.
== END ==
PROVIDERS: PCP Physician Assistant; Visit Provider Internal Medicine Critical Care Medicine
DX: Z12.2 Encounter for screening for malignant neoplasm of respiratory organs (principal); Z87.891 Personal history of nicotine dependence; R91.8 Other nonspecific abnormal finding of lung field
CPT/HCPCS: 71271

== ENCOUNTER 2021-01-21 08:02 | Outpatient (CLI) | payer OTHER, SELFPAY ==
--- NOTE | ~2021-01-21 | PE_ITS ---
EXAMINATION: PET skull to mid thigh DATE: 01/21/2021 10:14 INDICATION: Pulmonary nodule TECHNIQUE: Blood glucose level was 84 mg/dL. 7.78 mCi of 18-fluorodeoxyglucose (18-FDG) was administe red i.v. Low dose computed tomography (CT) images were acquired from the base of the brain to the pro ximal thighs for attenuation correction and anatomic localization. Positron emission tomography (PET) images were acquired in the same distribution beginning 65 minutes after injection. Images including fused PET/CT images were reconstructed in axial, coronal, and sagittal planes. Automated exposure co ntrol technique was employed. The dose-length product was 235.45mGy-cm. COMPARISON: Chest CT dated 12/31/2020 FINDINGS: Head/neck: There are regions of decreased uptake with corresponding decreased parenchymal attenuation most promi nent in the right parietal and temporal with smaller regions in the right frontal and left parietal l obes suggesting prior infarct. There is symmetric increased activity in the oral cavity, palatine ton sils, parotid glands, submandibular glands and ocular muscles without CT correlate, likely physiolog ic. There is asymmetric increased uptake along the right vocal cord with maximal SUV of 5.8 without r adiologic correlate which may be related to reported history of cancer of the vocal cords. There is m ild uptake extending craniocaudally along the bilateral sternocleidomastoid muscles without radiologi c which likely physiologic. No pathologically enlarged cervical lymphadenopathy or other suspicious f oci of increased FDG uptake in the visualized head or neck. Chest: Moderate emphysema. No significant interval change in a band of soft tissue density extending oblique ly across the apical segment of the right upper lobe with small amount of FDG activity with maximal S UV of 1.9 which is comparable to the activity in the blood pool of the aorta with a maximal SUV is 2. 1 cm in the liver with maximal SUV of 2.5. Lungs are otherwise clear with no pneumonia, other pulmona ry nodules, pulmonary edema or pleural effusion. Heart size is normal. No pericardial effusion. Thora cic aorta is normal in caliber. No pathologically enlarged or FDG avid thoracic lymphadenopathy. Abdomen/pelvis/proximal thighs: Physiologic renal accumulation and excretion of FDG activity in the kidneys, bladder and along portio ns of ureters. Cholecystectomy clips the gallbladder fossa. Normal degree and heterogenous pattern of increased uptake throughout the liver without radiologic correlate or dominant FDG avid lesion. The pancreas, spleen and bilateral adrenal glands are normal. Mild uptake scattered throughout the bowels without radiologic correlate, also likely physiologic. Uterus and adnexa are unremarkable. No other abnormal foci of increased FDG uptake or pathologically enlarged lymphadenopathy in the abdomen, pelv is or proximal thighs. Musculoskeletal: No suspicious lytic, blastic or FDG avid bone lesions. IMPRESSION: 1. Asymmetric increased uptake along the right vocal cord with maximal SUV of 5.8 without evident rad iologic correlate. This may be related to reported prior history of cancer of the vocal cord with no evident nodule or mass appreciated on the CT images. Consider laryngoscopy for direct visualization. 2. Moderate emphysema with no significant increased uptake along a bandlike opacity at the right uppe r lobe. While reassuring and favoring atelectasis/scarring is in etiology would recommend 3 month fol low-up low-dose noncontrast chest CT. 3. Regions of decreased activity with subtle cortical decreased attenuation most prominent in the rig ht parietal and temporal lobes with smaller regions in the right frontal and left parietal lobes susp icious for infarcts. Consider correlation with head CT or MRI. Reviewed, dictated and fi
[2021-01-21 08:32] LABS: Glucose Point of Care 84 mg/dl (65-105)
== END 2021-01-21 08:03 | disposition home or self-care (01) ==
LOC: ANHIMG 08:05
PROVIDERS: PCP Physician Assistant; Visit Provider Internal Medicine Critical Care Medicine
DX: R91.8 Other nonspecific abnormal finding of lung field (principal); J43.9 Emphysema, unspecified
CPT/HCPCS: 78815; A9552

== ENCOUNTER → 2021-04-15 15:19 | Outpatient (CLI) | payer OTHER, SELFPAY ==
--- NOTE | ~2021-04-15 | MR_ITS ---
EXAMINATION: MR brain/brain stem wo con DATE: 04/15/2021 16:02 INDICATION: Other sequelae of cerebral infarction. Dizziness. TECHNIQUE: Magnetic resonance imaging (MRI) of the brain and brainstem was performed without intraven ous contrast. Sequences included sagittal and axial T1-weighted FSE, axial diffusion-weighted FS EPI, axial T2*-weighted GRE, axial T2-weighted FLAIR Propeller, and axial T2-weighted Propeller. Apparent diffusion coefficient (ADC) maps were created. COMPARISON: Head CT 10/18/2019 FINDINGS: There are patchy old infarcts involving right frontal, parietal, temporal, and occipital lo bes in the expected distribution of right middle cerebral artery. There are scattered areas of nonspe cific increased T2-weighted signal intensity in the cerebral white matter. There is no intracranial h emorrhage, acute infarction, or abnormal intracranial mass lesion. The ventricles are normal in size. The orbits are normal. The mastoid air cells are normal. The paranasal sinuses are clear. IMPRESSION: 1. Patchy old infarcts in the expected distribution of right middle cerebral artery. 2. Mild nonspecific cerebral white matter disease, which likely represents chronic small vessel ische leela disease. Reviewed, dictated and finalized at location A. UCER ASSISTANT IMPRESSION: 1. Patchy old infarcts in the expected distribution of right middle cerebral ar areli. 2. Mild nonspecific cerebral white matter disease, which likely represents java spring developer doris small vessel ischemic disease.
== END ==
PROVIDERS: PCP Physician Assistant
DX: I69.398 Other sequelae of cerebral infarction (principal); R20.9 Unspecified disturbances of skin sensation; R90.82 White matter disease, unspecified
CPT/HCPCS: 70551

== ENCOUNTER → 2021-04-18 11:21 | Outpatient (CLI) | payer OTHER, SELFPAY ==
--- NOTE | ~2021-04-18 | CT_ITS ---
EXAMINATION: CT diagnostic chest wo con DATE: 04/18/2021 11:38 INDICATION: Solitary pulmonary nodule TECHNIQUE: Computed tomography (CT) of the chest was performed without intravenous contrast. The dose -length product was 43.10 mGy-cm. Automated exposure control and iterative reconstruction technique w ere employed. COMPARISON: CT dated 12/31/2020 FINDINGS: There is linear scarring in the right apex which has a less masslike appearance than on oh or examination. There is emphysema. There are no endobronchial lesions. No pneumothorax. No focal air space consolidation. No thoracic lymphadenopathy. No new pulmonary nodules or masses. No endobronchia l lesions. There is mild thoracic spondylosis. No acute osseous abnormality. IMPRESSION: 1. No acute cardiopulmonary disease. 2: Near complete resolution of consolidation in the right upper lobe compared with prior examination, likely postinfectious scarring. 3: Emphysema. Reviewed, dictated and finalized at location A. CLERK IMPRESSION: 1. No acute cardiopulmonary disease. 2: Near complete resolution of consolidation in the right upper lobe compared w ith prior examination, likely postinfectious scarring. 3: Emphysema.
== END ==
PROVIDERS: PCP Physician Assistant; Visit Provider Internal Medicine Critical Care Medicine
DX: R91.1 Solitary pulmonary nodule (principal); J43.9 Emphysema, unspecified
CPT/HCPCS: 71250

== ENCOUNTER → 2021-07-10 09:01 | Outpatient (CLI) | payer OTHER, SELFPAY ==
--- NOTE | ~2021-07-10 | US_ITS ---
EXAMINATION: US soft tissue abdomen DATE: 07/10/2021 09:34 INDICATION: Periumbilical hernia TECHNIQUE: Multiple grayscale and Doppler ultrasound images of the anterior abdominal wall were obtai duglas. COMPARISON: PET/CT dated 01/31/2021 FINDINGS/IMPRESSION: No interval change in a small widemouthed fat-containing umbilical hernia. Reviewed, dictated and finalized at location B.
== END ==
PROVIDERS: PCP Physician Assistant; Visit Provider Physician Assistant
DX: K42.9 Umbilical hernia without obstruction or gangrene (principal)
CPT/HCPCS: 76705

== ENCOUNTER → 2021-07-30 14:14 | Outpatient (CLI) | payer OTHER, SELFPAY ==
--- NOTE | ~2021-07-30 | CT_ITS ---
EXAMINATION: CT abdomen pelvis wo con DATE: 07/30/2021 14:30 INDICATION: Periumbilical hernia. Abdominal pain. TECHNIQUE: Computed tomography (CT) of the abdomen and pelvis was performed without intravenous contr ast. Automated exposure control and iterative reconstruction technique were employed. The dose-length product was 250.06 mGy-cm. COMPARISON: Chest CT 04/18/2021 FINDINGS: The visualized portions of the lung bases demonstrate emphysema and mild atelectasis. No pl eural effusion. The heart size is normal. No pericardial effusion. The liver and spleen are normal. T here are changes of cholecystectomy. The pancreas, adrenal glands, and kidneys are normal. There is a urolithiasis. There are no dilated loops of bowel. The appendix is normal. There are no pathological ly enlarged lymph nodes. There is no free intraperitoneal fluid. There is an umbilical hernia contain ing fat. There is mild lumbar spondylosis. IMPRESSION: 1. Umbilical hernia containing fat. 2. Severe emphysema. Reviewed, dictated and finalized at location B.
== END ==
PROVIDERS: PCP Physician Assistant; Visit Provider Physician Assistant
DX: K42.9 Umbilical hernia without obstruction or gangrene (principal); J43.9 Emphysema, unspecified
CPT/HCPCS: 74176

== ENCOUNTER 2021-09-05 16:41 | Outpatient (CLI) | payer OTHER, SELFPAY ==
[2021-09-06 01:05] LABS: Toxigenic C. Diff NEGATIVE (NEGATIVE)
[2021-09-12 22:03] LABS: Calprotectin, Stool 94 mcg/g
== END 2021-09-05 16:42 | disposition home or self-care (01) ==
LOC: ANHLAB 16:42
PROVIDERS: PCP Family Medicine; Visit Provider Nurse Practitioner
DX: R10.9 Unspecified abdominal pain (principal); R19.7 Diarrhea, unspecified
CPT/HCPCS: 83993; 87045; 87427; 87493

== ENCOUNTER 2021-11-03 10:39 | Outpatient (CLI) | payer OTHER, SELFPAY ==
--- NOTE | ~2021-11-03 | US_ITS ---
EXAMINATION: US carotid duplex BI DATE: 11/03/2021 11:39 INDICATION: Carotid stenosis. TECHNIQUE: Grayscale, color Doppler, and pulsed Doppler images of the cervical carotid arteries were obtained. The degree of vessel stenosis is placed in one of the following categories: normal, <50%, 5 0-69%, >=70% but less than near-occlusion, near-occlusion, or total occlusion. Note that percent sten osis relative to normal distal artery lumen diameter is indirectly measured from velocity measurement s as described by Reed, et al. Radiology 2003; 229:340-346. Notes: Normal: Peak systolic velocity <125 centimeters/sec and no plaque <50%. Peak systolic velocity <125 ( EDV <40; ICA/CCA PSV ratio <2.0; used these factors only a tandem lesions or low cardiac output or co ntralateral disease) 50-69 %: PSV 125-230 (EDV 40-100; ratio 2-4) >= 70% but less than near occlusion: PSV greater than 230 (EDV > 100; ratio> 4.0) Near Occlusion: PSV that is variable; markedly narrowed lumen Occlusion: Absent flow on color/spectral Doppler and no lumen on hillman scale. COMPARISON: 02/26/2020. FINDINGS: RIGHT: The right common carotid artery (CCA) peak systolic velocity (PSV) is 91 cm/s. The right internal car otid artery (ICA) PSV is 86 cm/s. The right ICA end-diastolic velocity (EDV) is 31 cm/s. The right IC A/CCA PSV ratio is 0.9. The external carotid artery (ECA) PSV is 66 cm/s. There is antegrade flow in the right vertebral artery. LEFT: The left CCA PSV is 97 cm/s. The left ICA PSV is 86 cm/s. The left ICA EDV is 33 cm/s. The left ICA/C CA PSV ratio is 0.9. The ECA PSV is 72 cm/s. There is antegrade flow in the left vertebral artery. IMPRESSION: 1. Less than 50% stenosis in the right internal carotid artery by sonographic criteria. 2. Less than 50% stenosis in the left internal carotid artery by sonographic criteria. Reviewed, dictated and finalized at location A. IMPRESSION: 1. Less than 50% stenosis in the right internal carotid artery by sonographic c adyeria. 2. Less than 50% stenosis in the left internal carotid artery by sonographic cr kristine.
== END 2021-11-03 10:40 | disposition home or self-care (01) ==
PROVIDERS: PCP Family Medicine
DX: I65.23 Occlusion and stenosis of bilateral carotid arteries (principal)
CPT/HCPCS: 93880

== ENCOUNTER → 2022-01-01 10:16 | Outpatient (CLI) | payer OTHER, SELFPAY ==
--- NOTE | ~2022-01-01 | CT_ITS ---
EXAMINATION: CT lung screening DATE: 01/01/2022 10:31 INDICATION: Personal history of nicotine dependence, prior smoker with 70 to pack year history TECHNIQUE: Computed tomography (CT) of the chest was performed without intravenous contrast. The dose -length product (DLP) was 40.12 mGy-cm. Automated exposure control and iterative reconstruction techn [employer] were employed. COMPARISON: 04/18/2021 FINDINGS: There is severe emphysema. There is scarring in the lung apices, right greater than left. T here is a 2 mm nodule of the right upper lobe. No pleural effusion or pneumothorax. The lungs are tenzin e of acute opacities. No pathologically enlarged thoracic lymph nodes are identified. The heart size is normal. There is mild thoracic spondylosis. IMPRESSION: 1. Lung-RADS category 2: Benign appearance or behavior. Continue annual screening with noncontrast lo w-dose chest CT in 12 months. Reviewed, dictated and finalized at location F. DING RENTAL MANAGER IMPRESSION: 1. Lung-RADS category 2: Benign appearance or behavior. Continue annual screeni ng with noncontrast low-dose chest CT in 12 months.
== END ==
PROVIDERS: PCP Family Medicine; Visit Provider Internal Medicine Critical Care Medicine
DX: Z12.2 Encounter for screening for malignant neoplasm of respiratory organs (principal); Z87.891 Personal history of nicotine dependence
CPT/HCPCS: 71271

== ENCOUNTER → 2022-01-16 12:48 | Outpatient (CLI) | payer OTHER, SELFPAY ==
--- NOTE | ~2022-01-16 | MM_ITS ---
EXAMINATION: MM screening pernell BI w bolivar HISTORY: Screening mammogram TECHNIQUE: Craniocaudal and mediolateral oblique 3-D tomosynthesis images were obtained and synthetic 2-D images were generated. CAD analysis was submitted and interpreted. COMPARISON: 10/31/2020 diagnostic left mammogram and limited left breast ultrasound examination 02/22/2020, 10/31/2018 bilateral screening mammogram examinations BREAST PARENCHYMAL COMPOSITION: The breasts are heterogeneously dense, which may obscure small masses . FINDINGS: There is no evidence of suspicious mass, calcification, or architectural distortion to sugg est malignancy in either breast. There has been no suspicious interval change. IMPRESSION: 1. No mammographic evidence of malignancy. 2. Recommend routine screening mammography in one year. BI-RADS Category 1: Negative Reviewed, dictated and finalized at location A. AT CRYPTOLOGIC MANAGER
== END ==
PROVIDERS: PCP Family Medicine; Visit Provider Family Medicine
DX: Z12.31 Encounter for screening mammogram for malignant neoplasm of breast (principal)
CPT/HCPCS: 77063; 77067

== ENCOUNTER → 2022-10-08 12:06 | Outpatient (CLI) | payer OTHER, SELFPAY ==
--- NOTE | ~2022-10-08 | DEXA_ITS ---
Bone Density Report Name: LUNA BARKLEY Age: 56 Sex: Female Ethnicity: White Date of : 1965 Indication: postmenopausal osteoporosis; monitoring treatment; parental hip fracture; height loss; history of glucocorticoids; asthma or emphysema; Referring Provider: Fidel, Omar Acuna Study: Bone densitometry was performed. Exam Date: October 08, 2022 Accession number: [id number] Bone Density: Region BMD T-score Z-score Classification AP Spine (L1-L4) 0.901 -1.3 0.0 Osteopenia Femoral Neck (Left) 0.592 -2.3 -1.1 Osteopenia Total Hip (Left) 0.664 -2.3 -1.4 Osteopenia Femoral Neck (Right) 0.606 -2.2 -1.0 Osteopenia Total Hip (Right) 0.645 -2.4 -1.5 Osteopenia Total Hip Mean 0.655 -2.4 -1.5 Osteopenia World Health Organization criteria for BMD impression classify patients as: Normal (T-score at or above -1.0), Osteopenia (T-score between -1.0 and -2.5), or Osteoporosis (T-score at or below -2.5). 10-year Fracture Risk: FRAX not reported because: Treated for osteoporosis Previous Exams: Region Exam Age BMD T-score BMD Change BMD Change Date g/cm2 vs Baseline vs Previous AP Spine(L1-L4) 10/08/2022 56 0.901 -1.3 0.009 0.015 02/22/2020 54 0.885 -1.5 -0.006 -0.005 05/11/2017 51 0.890 -1.4 -0.001 -0.018 01/31/2015 49 0.909 -1.3 0.017 0.033* 01/25/2013 47 0.876 -1.6 -0.016 -0.041* 12/08/2010 45 0.917 -1.2 0.025* 0.025* 10/24/2008 43 0.892 -1.4 Total Hip(Left) 10/08/2022 56 0.664 -2.3 0.010 0.006 02/22/2020 54 0.657 -2.3 0.004 -0.015 05/11/2017 51 0.672 -2.2 0.018 0.004 01/31/2015 49 0.668 -2.2 0.015 0.008 01/25/2013 47 0.660 -2.3 0.006 -0.009 12/08/2010 45 0.669 -2.2 0.015 0.015 10/24/2008 43 0.654 -2.4 Total Hip(Right) 10/08/2022 56 0.645 -2.4 -0.054* 0.016 02/22/2020 54 0.629 -2.6 -0.070* -0.029* 05/11/2017 51 0.657 -2.3 -0.041* -0.037* 01/31/2015 49 0.694 -2.0 -0.004 -0.005 01/25/2013 47 0.699 -2.0 0.000 -0.003 12/08/2010 45 0.702 -2.0 0.003 0.003 10/24/2008 43 0.699 -2.0 *Denotes significance at 95% confidence level, LSC for AP Spine = 0.022 g/cm2, LSC for Total Hip = 0.027 g/cm2 Clinical Information Provided by Patient:
== END ==
PROVIDERS: PCP Family Medicine; Visit Provider Family Medicine
DX: M85.88 Other specified disorders of bone density and structure, other site (principal); M85.852 Other specified disorders of bone density and structure, left thigh; M85.851 Other specified disorders of bone density and structure, right thigh
CPT/HCPCS: 77080

== ENCOUNTER 2022-11-09 13:47 | Outpatient (CLI) | payer OTHER, SELFPAY ==
--- NOTE | ~2022-11-09 | US_ITS ---
EXAMINATION: US carotid duplex BI DATE: 11/09/2022 14:55 INDICATION: Carotid stenosis TECHNIQUE: Grayscale, color Doppler, and pulsed Doppler images of the cervical carotid arteries were obtained. The degree of vessel stenosis is placed in one of the following categories: normal, <50%, 5 0-69%, >=70% but less than near-occlusion, near-occlusion, or total occlusion. Note that percent sten osis relative to normal distal artery lumen diameter is indirectly measured from velocity measurement s as described by Reed, et al. Radiology 2003; 229:340-346. Notes: Normal: Peak systolic velocity <125 centimeters/sec and no plaque <50%. Peak systolic velocity <125 ( EDV <40; ICA/CCA PSV ratio <2.0; used these factors only a tandem lesions or low cardiac output or co ntralateral disease) 50-69 %: PSV 125-230 (EDV 40-100; ratio 2-4) >= 70% but less than near occlusion: PSV greater than 230 (EDV > 100; ratio> 4.0) Near Occlusion: PSV that is variable; markedly narrowed lumen Occlusion: Absent flow on color/spectral Doppler and no lumen on hillman scale. COMPARISON: None. FINDINGS: RIGHT: The right common carotid artery (CCA) peak systolic velocity (PSV) is 118 cm/s. The right internal ca rotid artery (ICA) PSV is 84 cm/s. The right ICA end-diastolic velocity (EDV) is 33 cm/s. The right I CA/CCA PSV ratio is 0.7. The external carotid artery (ECA) PSV is 67 cm/s. There is antegrade flow in the right vertebral artery. LEFT: The left CCA PSV is 115 cm/s. The left ICA PSV is 96 cm/s. The left ICA EDV is 35 cm/s. The left ICA/ CCA PSV ratio is 0.8. The ECA PSV is 89 cm/s. There is antegrade flow in the left vertebral artery. IMPRESSION: 1. Less than 50% stenosis in the right internal carotid artery by sonographic criteria. 2. Less than 50% stenosis in the left internal carotid artery by sonographic criteria. Reviewed, dictated and finalized at location B. IMPRESSION: 1. Less than 50% stenosis in the right internal carotid artery by sonographic tyrell guzman. 2. Less than 50% stenosis in the left internal carotid artery by sonographic dionne carmona.
== END 2022-11-09 13:48 | disposition home or self-care (01) ==
PROVIDERS: PCP Family Medicine
DX: I65.23 Occlusion and stenosis of bilateral carotid arteries (principal)
CPT/HCPCS: 93880

== ENCOUNTER → 2023-01-14 13:31 | Outpatient (CLI) | payer OTHER, SELFPAY ==
--- NOTE | ~2023-01-14 | CT_ITS ---
CT Scan of the Chest without Contrast: Clinical Indication: Lung cancer screening, smoking history Technique: Contiguous sections were acquired throughout the chest without intravenous contrast. Dose reduction technique was used on this scan by utilizing automated exposure control and iterative recon struction technique. The dose-length product (DLP) was 39.69 mGy-cm. COMPARISON: 01/01/2022 Findings: There is no evidence of any significant mediastinal, hilar or axillary lymphadenopathy. The mediastin al soft tissues appear normal. There is no evidence of pleural or pericardial effusion. There is severe emphysema. There is right apical/upper lobe scarring. Images through the upper abdomen reveal no abnormalities. Impression: Lung RADS 2: Benign appearance. 12 month follow-up screening CT advised. Reviewed, dictated and finalized at location . OR MAKER Impression: Lung RADS 2: Benign appearance. 12 month follow-up screening CT advised.
== END ==
PROVIDERS: PCP Internal Medicine Critical Care Medicine; Visit Provider Internal Medicine Critical Care Medicine
DX: Z12.2 Encounter for screening for malignant neoplasm of respiratory organs (principal); Z87.891 Personal history of nicotine dependence
CPT/HCPCS: 71271

== ENCOUNTER 2023-08-04 14:31 | Outpatient (CLI) | payer OTHER, SELFPAY ==
--- NOTE | ~2023-08-04 | MM_ITS ---
EXAMINATION: MM screening pernell BI w bolivar HISTORY: Screening TECHNIQUE: Craniocaudal and mediolateral oblique 3-D tomosynthesis images were obtained and synthetic 2-D images were generated. CAD analysis was submitted and interpreted. COMPARISON: Comparison to multiple prior studies sequentially, with oldest reviewed study dated 01/16. BREAST PARENCHYMAL COMPOSITION: Dense: The breasts are heterogeneously dense, which may obscure small masses FINDINGS: There is no evidence of suspicious mass, calcification, or architectural distortion to sugg est malignancy in either breast. There has been no suspicious interval change. IMPRESSION: 1. No mammographic evidence of malignancy. 2. Recommend routine screening mammography in one year. BI-RADS Category 1: Negative Reviewed, dictated and finalized at location B.
== END 2023-08-04 14:32 ==
LOC: MICIMG 14:32
PROVIDERS: PCP Internal Medicine Critical Care Medicine; Visit Provider Family Medicine
DX: Z12.31 Encounter for screening mammogram for malignant neoplasm of breast (principal)
CPT/HCPCS: 77063; 77067

== ENCOUNTER 2023-11-04 10:24 | Outpatient (CLI) | payer OTHER, SELFPAY ==
--- NOTE | ~2023-11-04 | US_ITS ---
EXAMINATION: US carotid duplex BI DATE: 11/04/2023 11:10 INDICATION: Bilateral carotid stenosis. TECHNIQUE: Grayscale, color Doppler, and pulsed Doppler images of the cervical carotid arteries were obtained. The degree of vessel stenosis is placed in one of the following categories: normal, <50%, 5 0-69%, >=70% but less than near-occlusion, near-occlusion, or total occlusion. Note that percent sten osis relative to normal distal artery lumen diameter is indirectly measured from velocity measurement s as described by Reed, et al. Radiology 2003; 229:340-346. COMPARISON: Ultrasound 11/09/2022 FINDINGS: RIGHT: The right common carotid artery (CCA) peak systolic velocity (PSV) is 72 cm/s. The right internal car otid artery (ICA) PSV is 85 cm/s. The right ICA end-diastolic velocity (EDV) is 33 cm/s. The right IC A/CCA PSV ratio is 1.2. Grayscale and color Doppler images yield an estimate of <50% diameter reducti on from plaque in the ICA. There is antegrade flow in the right vertebral artery. LEFT: The left CCA PSV is 78 cm/s. The left ICA PSV is 92 cm/s. The left ICA EDV is 28 cm/s. The left ICA/C CA PSV ratio is 1.2. Grayscale and color Doppler images yield an estimate of <50% diameter reduction from plaque in the ICA. There is antegrade flow in the left vertebral artery. IMPRESSION: 1. <50% stenosis in the right internal carotid artery. 2. <50% stenosis in the left internal carotid artery. Reviewed, dictated and finalized at location A.
== END 2023-11-04 10:25 | disposition home or self-care (01) ==
LOC: ANHIMG 10:30
PROVIDERS: PCP Family Medicine
DX: I65.23 Occlusion and stenosis of bilateral carotid arteries (principal)
CPT/HCPCS: 93880

== ENCOUNTER 2024-01-19 13:07 | Outpatient (CLI) | payer OTHER, SELFPAY ==
--- NOTE | ~2024-01-19 | CT_ITS ---
CT Scan of the Chest without Contrast: Clinical Indication: Lung cancer screening, nicotine dependence Technique: Contiguous sections were acquired throughout the chest without intravenous contrast. Dose reduction technique was used on this scan by utilizing automated exposure control and iterative recon struction technique. The dose-length product (DLP) was 36.86 mGy-cm. COMPARISON: 01/14/2023 Findings: There is no evidence of any significant mediastinal, hilar or axillary lymphadenopathy. The mediastin al soft tissues appear normal. There is no evidence of pleural or pericardial effusion. Stable right apical scarring. Advanced emphysema present. There is a new 9 mm left lower lobe pulmona ry nodule (axial image 63). Images through the upper abdomen reveal no abnormalities. Impression: Lung RADS 4A: Suspicious. 3 month follow-up CT recommended. PET CT could also be considered. Advanced emphysema. Reviewed, dictated and finalized at [facility]. ET DEVELOPER Impression: Lung RADS 4A: Suspicious. 3 month follow-up CT recommended. PET CT could also b e considered. Advanced emphysema.
== END 2024-01-19 13:08 | disposition home or self-care (01) ==
LOC: MICIMG 13:07
PROVIDERS: PCP Family Medicine; Visit Provider Internal Medicine Critical Care Medicine
DX: Z12.2 Encounter for screening for malignant neoplasm of respiratory organs (principal); J43.9 Emphysema, unspecified; Z87.891 Personal history of nicotine dependence
CPT/HCPCS: 71271

== ENCOUNTER 2024-02-17 09:04 | Outpatient (CLI) | payer OTHER, SELFPAY ==
--- NOTE | ~2024-02-17 | PE_ITS ---
EXAMINATION: PET skull to mid thigh DATE: 02/17/2024 11:10 INDICATION: Left lower lobe nodule. TECHNIQUE: Blood glucose level was 90 mg/dL. 10.36 mCi of 18-fluorodeoxyglucose (18-FDG) was administ ered i.v. Low dose computed tomography (CT) images were acquired from the base of the brain to the pr oximal thighs for attenuation correction and anatomic localization. Positron emission tomography (PET ) images were acquired in the same distribution beginning 51 minutes after injection. Images includin g fused PET/CT images were reconstructed in axial, coronal, and sagittal planes. Automated exposure c ontrol technique was employed. The dose-length product was 481.20mGy-cm. COMPARISON: CT dated 01/19/2024 FINDINGS: Head/neck: There is symmetric increased activity in the oral cavity, palatine and lingual tonsils, parotid gland s, submandibular glands and various muscles and the head and neck without CT correlate, likely physi ologic. Moderate-sized region of right occipital encephalomalacia consistent with chronic infarct. No pathologically enlarged cervical lymphadenopathy or suspicious foci of increased FDG uptake in the v isualized head or neck. Chest: Emphysema. FDG avid 9 mm left lower lobe nodule with maximal SUV of 13.2. Linear discoid atelectasis/ scarring at the right apex. No pleural effusion. Heart size is normal. Small of atherosclerotic coron armani artery calcific location. No pericardial effusion. Thoracic aorta is normal in caliber. No pathol ogically enlarged or FDG avid thoracic lymphadenopathy. There is likely physiologic uptake without ra diologic correlate diffusely involving the paraspinal musculature as well as the musculature at the b ilateral shoulders. Abdomen/pelvis/proximal thighs: Cholecystectomy clips the gallbladder fossa. Physiologic renal accumulation and excretion of FDG acti vity in the kidneys, bladder and along portions of ureters. Normal degree and heterogenous pattern of increased uptake throughout the liver without radiologic correlate or dominant FDG avid lesion. The pancreas, spleen and bilateral adrenal glands are normal. Mild to moderate uptake scattered throughou t the bowels without radiologic correlate, also likely physiologic. Uterus and bilateral adnexa are u nremarkable. No other abnormal foci of increased FDG uptake or pathologically enlarged lymphadenopath y in the abdomen, pelvis or proximal thighs. Musculoskeletal: Moderate cervical mild thoracic and lumbar spondylosis. No suspicious lytic, blastic or FDG avid bone lesions to suggest metastatic disease. IMPRESSION: 1. 9 mm FDG avid left lower lobe nodule concerning for primary bronchogenic carcinoma. If the patient is a biopsy candidate not requiring supplemental oxygen at baseline would recommend CT-guided biopsy . 2. No other lesions suspicious for malignancy/metastatic disease. Reviewed, dictated and finalized at location B. OMS OPENER VERIFIER PACKER IMPRESSION: 1. 9 mm FDG avid left lower lobe nodule concerning for primary bronchogenic car cinoma. If the patient is a biopsy candidate not requiring supplemental oxygen at baseline would recommend CT-guided biopsy. 2. No other lesions suspicious for malignancy/metastatic disease.
[2024-02-17 09:25] LABS: Glucose Point of Care 90 mg/dl (65-105)
== END 2024-02-17 09:05 | disposition home or self-care (01) ==
PROVIDERS: PCP Family Medicine; Visit Provider Internal Medicine Critical Care Medicine
DX: R91.1 Solitary pulmonary nodule (principal)
CPT/HCPCS: 78815; A9552

== ENCOUNTER 2024-11-21 00:31 | Day surgery (SDC) | payer OTHER, SELFPAY ==
[2024-11-08 14:18] VITALS: BMI 18.9
[2024-11-21 10:01] VITALS: BP 124/82; PULSE 92; RESP 18; TEMP 36.5; O2SAT 97; BMI 18.1
[2024-11-21] MEDS: LACTATED RINGERS 1,000 ML 150 ML IV CONT (10:12)
--- NOTE | 2024-11-21 10:23 | WPDANESEPPF ---
Anes - Initial Pre Proc Eval Procedure: Operation Date: 11/21/24 11:00 Proposed Procedures p Screening Colonoscopy - Jorje Godfrey MD Date/Time: 11/21/24 10:23 Surgeon: Jorje Godfrey MD Pre Op Diagnosis: Encounter for screening for malignant neoplasm of Patient Data Age: 59 Gender: F Height: 1.63 m Weight: 48.1 kg Last Vital Signs Temp 36.5 C 11/21/24 10:01 Pulse 92 11/21/24 10:01 Resp 18 11/21/24 10:01 BP 124/82 11/21/24 10:01 Pulse Ox 97 11/21/24 10:01 O2 Del Method Room Air 11/21/24 10:01 Allergies Allergy/AdvReac Type Severity Reaction Status Date / Time No Known Allergies Allergy Unknown Verified 11/21/24 09:59 Home Medications ?Medication ?Instructions ?Recorded ?Confirmed ?Type aspirin 81 mg tablet,delayed 81 mg PO DAILY 04/30/20 11/21/24 History release fluticasone propionate 50 1 spray intranasal DAILY 04/30/20 11/21/24 History mcg/actuation nasal spray,suspension levothyroxine 75 mcg tablet 75 mcg PO DAILY 04/30/20 11/21/24 History (Synthroid) omeprazole 40 mg capsule,delayed 40 mg PO DAILY 04/30/20 11/21/24 History release rosuvastatin 40 mg tablet 40 mg PO DAILY 07/07/23 11/21/24 History albuterol sulfate 90 mcg/actuation 1 - 2 puff inhalation Q4-6H PRN 11/03/23 11/08/24 Rx aerosol inhaler (Ventolin HFA) Shortness Of Breath #8.5 grams fluticasone fur. 100 mcg-umeclid #3 Samples 07/05/24 11/21/24 Sample 62.5 mcg-vilant 25 mcg inhalat.powder (Trelegy Ellipta) roflumilast 500 mcg tablet See Rx Instructions .Route 09/12/24 11/21/24 Rx .COMPLEX #90 tabs Trelegy Ellipta 100 mcg-62.5 1 inh inhalation DAILY COPD 1 11/08/24 11/21/24 Rx mcg-25 mcg powder for inhalation month #60 ea ([id number]) Patient hx anesthesia problems: none Family hx anesthesia problems: none Results Review: All pre-operative results and documents have been reviewed as part of the pre-operative evaluation. FORMERLY [facility], 1928–1983 Past Medical History Medical History Allergies Atopy Rhinitis Asthma-COPD overlap syndrome Bloating Diarrhea CVA (cerebral vascular accident) Stenosis of right internal carotid artery Facial paresthesia Paresthesia of left arm GERD (gastroesophageal reflux disease) Hypothyroidism S/P radiation therapy Vocal cord cancer Thyroid disease Osteopenia COPD (chronic obstructive pulmonary disease) Surgical History Surgical History History of CEA (carotid endarterectomy) Right side tubal ligation planned Cholecystectomy planned Family History Family History Father Family history of malignant neoplasm Leukemia Mother Family history of emphysema Chronic obstructive pulmonary disease Cerebrovascular accident Sibling Chronic obstructive pulmonary disease Breast cancer Social History Social History Smoking packs per day: 1 Smoking cigarettes per day: 20.0 Years smoked: 32 Smoking pack-years: 32.00 Smoking status: Former smoker Tobacco type: cigarettes Smoking end date: 04/15/13 Alcohol intake: current Drinks per week: 4 Alcohol use details: social use Substance use: never Substance use type: does not use Education: High School Diploma/GED Living arrangements: with family Occupation/Education: other Additional occupation/education comments: disabled Gender identity (if verbalized by the patient): Female Spiritual care concerns: No Anes - Eval Final PreProcedure Day of Procedure 11/21/24 10:23 Patient weight: normal Heart: regular rate and rhythm Lungs: clear to auscultation and normal air movement Airway: Mallampati scale class II Neurological: alert and oriented Last oral intake: >/= 8 hours ASA classification: III Emergent: no Anesthetic plan: proceed Anesthesia type and monitoring: general GIVS and standard monitoring Results Review: All pre-operative results and documents have been reviewed as part of the pre-operative evaluation. Informed Consent: The patient's anesthetic plan and its attendant risks and benefits were discussed with the patient/family/POA. Questions were solicited and answers provided to the satisfaction of the patient/family/POA.
--- NOTE | 2024-11-21 11:08 | PM.HPGS ---
History of Present Illness History of Present Illness Consent: Risks, benefits, and alternatives have been discussed and questions answered. Patient agrees to proceed with procedure. Chief complaint: Encounter for screening for malignant neoplasm of Narrative: Nisa Yan is a 59 year old female with last screening colonoscopy 10 years ago, also intermittent loose stools Review of Systems Review of Systems: All systems reviewed & are unremarkable except as noted in HPI and below PMFSH Past Medical History Medical History (Updated 11/21/24 @ 11:08 by Jorje Godfrey MD) Colon cancer screening Allergies Atopy Rhinitis Asthma-COPD overlap syndrome Bloating Diarrhea CVA (cerebral vascular accident) Stenosis of right internal carotid artery Facial paresthesia Paresthesia of left arm GERD (gastroesophageal reflux disease) Hypothyroidism S/P radiation therapy Vocal cord cancer Thyroid disease Osteopenia COPD (chronic obstructive pulmonary disease) Surgical History Surgical History History of CEA (carotid endarterectomy) Right side tubal ligation planned Cholecystectomy planned Family History Family History Father Family history of malignant neoplasm Leukemia Mother Family history of emphysema Chronic obstructive pulmonary disease Cerebrovascular accident Sibling Chronic obstructive pulmonary disease Breast cancer Social History Social History Smoking packs per day: 1 Smoking cigarettes per day: 20.0 Years smoked: 32 Smoking pack-years: 32.00 Smoking status: Former smoker Tobacco type: cigarettes Smoking end date: 04/15/13 Alcohol intake: current Drinks per week: 4 Alcohol use details: social use Substance use: never Substance use type: does not use Education: High School Diploma/GED Living arrangements: with family Occupation/Education: other Additional occupation/education comments: disabled Gender identity (if verbalized by the patient): Female Spiritual care concerns: No Meds Home Medications and Allergies Home Medications ?Medication ?Instructions ?Recorded ?Confirmed ?Type aspirin 81 mg tablet,delayed 81 mg PO DAILY 04/30/20 11/21/24 History release fluticasone propionate 50 1 spray intranasal DAILY 04/30/20 11/21/24 History mcg/actuation nasal spray,suspension levothyroxine 75 mcg tablet 75 mcg PO DAILY 04/30/20 11/21/24 History (Synthroid) omeprazole 40 mg capsule,delayed 40 mg PO DAILY 04/30/20 11/21/24 History release rosuvastatin 40 mg tablet 40 mg PO DAILY 07/07/23 11/21/24 History albuterol sulfate 90 mcg/actuation 1 - 2 puff inhalation Q4-6H PRN 11/03/23 11/08/24 Rx aerosol inhaler (Ventolin HFA) Shortness Of Breath #8.5 grams fluticasone fur. 100 mcg-umeclid #3 Samples 07/05/24 11/21/24 Sample 62.5 mcg-vilant 25 mcg inhalat.powder (Trelegy Ellipta) roflumilast 500 mcg tablet See Rx Instructions .Route 09/12/24 11/21/24 Rx .COMPLEX #90 tabs Trelegy Ellipta 100 mcg-62.5 1 inh inhalation DAILY COPD 1 11/08/24 11/21/24 Rx mcg-25 mcg powder for inhalation month #60 ea ([id number]) Allergies Allergy/AdvReac Type Severity Reaction Status Date / Time No Known Allergies Allergy Unknown Verified 11/21/24 09:59 Vital Signs Vital Signs - 24 hr 11/21/24 10:01 Temperature 97.7 F Pulse Rate 92 Respiratory Rate 18 Blood Pressure 124/82 Pulse Oximetry 97 Oxygen Delivery Room Air Exam Const: General: comfortable and no acute distress HENMT: Face/Nose/Sinus: Normal nares present Eyes: General: appearance normal, both eyes and all related structures Resp: Auscultation: clear to auscultation bilaterally Cardio: Rate: regular rate Rhythm: regular rhythm GI: Inspection: non-distended GI Palp: Yes Soft to palpation Skin: General skin exam: normal color Extrem: General: normal to inspection Psych: Mental Status: mental status grossly normal Assessment and Plan Assessment and plan (1) Colon cancer screening: Code(s): Z12.11 - Encounter for screening for malignant neoplasm of colon Status: Acute Assessment and Plan: colonoscopy (2) Diarrhea: Code(s): R19.7 - Diarrhea, unspecified Status: Acute
--- NOTE | 2024-11-21 11:25 | S_PTH ---
PATIENT: Nisa Yan LOC: [facility]#:[id number] AGE/SX: 59/F ROOM: RE11/21/[address]: Jorje Godfrey MD : 1965 BED: DIS: 11/21/2024 SPEC #: [id number] RECD: 11/21/24 12:47 STATUS: ADELAIDA REQ #: [id number] NELSON: 11/21/24 11:[address]: Jorje Godfrey DEPT: [facility] Surgical RECD BY: Margareth Dupree ENTERED: 11/21/24 12:48 SP TYPE: Surgical OTHR DR: Omar Parra, Tissues: A - Colon Biopsy B - Colon Polypectomy Procedures: Hematoxylin and Eosin Stain Gross and Microscopic Level 4
[2024-11-21 11:27] VITALS: BP 113/78; PULSE 72; RESP 23; O2SAT 100
[2024-11-21 11:38] VITALS: BP 110/72; PULSE 68; RESP 24; O2SAT 98
[2024-11-21 11:48] VITALS: BP 108/70; PULSE 65; RESP 24; O2SAT 100
== END 2024-11-21 11:54 | disposition home or self-care (01) ==
PROVIDERS: PCP Family Medicine; Referring Provider Family Medicine; Visit Provider Internal Medicine Gastroenterology
PROC: 0DJD8ZZ Inspection of Lower Intestinal Tract, Via Natural or Artificial Opening Endoscopic (ICD-10-PCS; CPT 45378; principal; 2024-11-21 11:00)
DX: Z12.11 Encounter for screening for malignant neoplasm of colon (principal); K52.831 Collagenous colitis; D12.5 Benign neoplasm of sigmoid colon; K64.8 Other hemorrhoids; K57.30 Diverticulosis of large intestine without perforation or abscess without bleeding; E03.9 Hypothyroidism, unspecified; K21.9 Gastro-esophageal reflux disease without esophagitis; J44.9 Chronic obstructive pulmonary disease, unspecified; M85.88 Other specified disorders of bone density and structure, other site; Z79.82 Long term (current) use of aspirin; Z79.51 Long term (current) use of inhaled steroids; Z98.890 Other specified postprocedural states; Z87.891 Personal history of nicotine dependence; Z92.3 Personal history of irradiation; Z85.21 Personal history of malignant neoplasm of larynx; Z86.79 Personal history of other diseases of the circulatory system; Z80.6 Family history of leukemia; Z80.3 Family history of malignant neoplasm of breast
CPT/HCPCS: 45380; 45385; 88305; J2704; J7120

== ENCOUNTER 2025-01-17 13:00 | Outpatient (CLI) | payer OTHER, SELFPAY ==
--- NOTE | ~2025-01-17 | DEXA_ITS ---
Bone Density Report Name: LUNA BARKLEY Age: 59 Sex: Female Ethnicity: White Date of : 1965 Indication: osteopenia; height loss; cancer; asthma or emphysema; Referring Provider: UNKNOWN, UNKNOWN Study: Bone densitometry was performed. Exam Date: January 17, 2025 Accession number: [id number] Bone Density: Region BMD T-score Z-score Classification AP Spine(L1-L4) 0.865 -1.7 -0.2 Osteopenia Femoral Neck (Left) 0.562 -2.6 -1.2 Osteoporosis Total Hip (Left) 0.636 -2.5 -1.5 Osteoporosis Femoral Neck (Right) 0.581 -2.4 -1.1 Osteopenia Total Hip (Right) 0.630 -2.6 -1.5 Osteoporosis Total Hip Mean 0.633 -2.6 -1.5 Osteoporosis World Health Organization criteria for BMD impression classify patients as: Normal (T-score at or above -1.0), Osteopenia (T-score between -1.0 and -2.5), or Osteoporosis (T-score at or below -2.5). 10-year Fracture Risk: FRAX not reported because: Some T-score for Spine Total or Hip Total or Femoral Neck at or below -2.5 Previous Exams: -- Region Exam Age BMD T-score BMD Change BMD Change Date g/cm2 vs Baseline vs Previous -- AP Spine (L1-L4) 01/17/2025 59 0.865 -1.7 -3.0%* -4.0%* 10/08/2022 56 0.901 -1.3 1.0% 1.7% 02/22/2020 54 0.885 -1.5 -0.7% -0.6% 05/11/2017 51 0.890 -1.4 -0.1% -2.0% 01/31/2015 49 0.909 -1.3 1.9% 3.8%* 01/25/2013 47 0.876 -1.6 -1.8% -4.5%* 12/08/2010 45 0.917 -1.2 2.9%* 2.9%* 10/24/2008 43 0.892 -1.4 Total Hip(Left) 01/17/2025 59 0.636 -2.5 -2.7% -4.1% 10/08/2022 56 0.664 -2.3 1.5% 0.9% 02/22/2020 54 0.657 -2.3 0.6% -2.2% 05/11/2017 51 0.672 -2.2 2.8% 0.6% 01/31/2015 49 0.668 -2.2 2.2% 1.3% 01/25/2013 47 0.660 -2.3 1.0% -1.4% 12/08/2010 45 0.669 -2.2 2.4% 2.4% 10/24/2008 43 0.654 -2.4 Total Hip(Right) 01/17/2025 59 0.630 -2.6 -9.8%* -2.3% 10/08/2022 56 0.645 -2.4 -7.7%* 2.6% 02/22/2020 54 0.629 -2.6 -10.0%* -4.4%* 05/11/2017 51 0.657 -2.3 -5.9%* -5.3%* 01/31/2015 49 0.694 -2.0 -0.6% -0.6% 01/25/2013 47 0.699 -2.0 0.0% -0.4% 12/08/2010 45 0.702 -2.0 0.4% 0.4% 10/24/2008 43 0.699 -2.0 -- *Denotes significance at 95% confidence level, LSC for AP Spine = 0.022 g/cm2, LSC for Total Hip = 0.027 g/cm2 Clinical Information Provided by Patient: Has used the following medications: Reclast (i.e. zoledronate), Vitamin D, Calcium Has the following medical conditions: Asthma or Emphysema, Cancer, vocal cord and lung cancer Patient maximum height was 64 Menopause Age: 41 No regular weight bearing exercise Does not regularly consume dairy products Drinks caffeinated beverages Onset of menses at age 10 Number of children 1 Impression: The patient has osteoporosis, based on the Right Total Hip T-score. The BMD for the AP Spine (L1-L4) decreased, changing by -4.0% since the last DXA exam. Discussion: INCREASED RISK OF FRACTURE. BONE DENSITY IS UNDESIRABLY LOW AT ONE OR MORE SKELETAL SITES, CONSISTENT WITH POSTMENOPAUSAL OSTEOPOROSIS. This patient's lowest T-score meets the World Health Organization's (WHO) criteria for osteoporosis at one or more sites (T-score -2.5 or below). In untreated patients, the risk of osteoporotic fracture increases approximately two-fold for each 1.0 SD decrease in T-score. Low bone density is not the only risk factor for fracture; also consider factors such as patient's age, frailty or poor health, risk of falling, risk of injury, previous osteoporotic fracture, family history of osteoporosis, cigarette smoking, low body weight, etc. Not everyone with low bone mineral density has osteoporosis; osteomalacia and other metabolic bone disorders should also be considered. Patients who have osteoporosis should be evaluated for specific diseases and conditions (secondary causes) that may cause or contribute to bone loss. The [place] [employer]ocrinologists (AACE) and National Osteoporosis Foundation (NOF) recommend pharmacologic intervention for all postmenopausal women whose T-score is in this range. The patient should follow a healthful lifestyle (good nutrition with adequate calcium and vitamin D, and appropriate weight-bearing exercise). Follow-Up: Consider a repeat BMD and Vertebral Fracture Assessment (VFA) exam in 2 years or sooner if medically necessary, to reassess this patient's status. Reported by: CAROLYN on 01/17/2025 1:49:00 PM. Reviewed, dictated and finalized at location A.
--- NOTE | ~2025-01-17 | MM_ITS ---
EXAMINATION: MM screening pernell BI w bolivra HISTORY: Screening. TECHNIQUE: Craniocaudal and mediolateral oblique 3-D tomosynthesis images were obtained and synthetic 2-D images were generated. CAD analysis was submitted and interpreted. COMPARISON: 2023, 2021, and 2020. BREAST PARENCHYMAL COMPOSITION: Dense: The breasts are heterogeneously dense FINDINGS: No suspicious masses are seen. There are no suspicious calcifications. No unexplained architectural distortion is seen. There are no skin or nipple abnormalities identified. There is no adenopathy seen on the images submitted. IMPRESSION: No mammographic evidence to suggest malignancy is seen. The patient may return to screening mammography as per ACR guidelines. BI-RADS 1 - Negative. Reviewed, dictated and finalized at location B. ADMIN
== END 2025-01-17 13:01 | disposition home or self-care (01) ==
LOC: MICIMG 13:02
PROVIDERS: PCP Family Medicine
DX: Z12.31 Encounter for screening mammogram for malignant neoplasm of breast (principal); M85.88 Other specified disorders of bone density and structure, other site; M81.0 Age-related osteoporosis without current pathological fracture; M85.851 Other specified disorders of bone density and structure, right thigh
CPT/HCPCS: 77063; 77067; 77080